=== PATIENT | male | born 1940 | race Caucasian/White ===

== ENCOUNTER 2016-09-04 07:00 | Day surgery (SDC) | payer MEDICARE, OTHER ==
[~2016-09-04] VITALS: Ht 182.9 cm; Wt 99.8 kg
[~2016-09-04 07:00] MED LIST: ASPIR-LOW81 MG PO; ATORVASTATIN CA80 MG PO; COREG3.125 MG PO; GLUCOPHAGE500 MG PO; IMURAN50 MG PO; LOTENSIN40 MG PO; NITROSTAT0.4 MG SL; TURMERIC500 M1 PO
--- NOTE | 2016-09-04 08:20 | NUR ---
PT SEEMS VERY RELAXED, ALERT AND ORIENTED. PT WAS INTRIGUED ABOUT GETTING COLOR COPIES OF THE PICS DR WAS TAKING DURING SCOPE. PASSED INFO ONTO HIS RN KEVIN. HIS DAUGHTER BEATRICE IS HERE TO TAKE HIM HOME. PT REQUESTED PRAYER, WILL FOLLOW NEEDED
--- NOTE | 2016-09-04 10:00 | NUR ---
09/04/16 Vesna Malik REPORT FROM DIRECTOR OF EDUCATION AND TRAINING.
--- NOTE | 2016-09-06 11:21 | OR ---
[facility] [address] [place], [place] [address] Signed DATE OF SERVICE: 09/04/2016 PREOPERATIVE DIAGNOSES: 1. Gastroesophageal reflux disease. 2. Personal history of colonic polyps. 3. Diverticulosis. POSTOPERATIVE DIAGNOSES: 1. Small type 1 hiatal hernia. 2. Mild gastritis. 3. Distal esophageal ulcer. 4. Moderate left-sided diverticulosis. 5. 5 mm polyps at 115, 110, 130 cm. 6. Moderate internal hemorrhoids. PROCEDURES: 1. EGD of with SYDNI testand biopsies of the antrum and distal esophageal ulcer. 2. Colonoscopy with hot biopsy. ESTIMATED BLOOD LOSS: None. INDICATIONS: Julius is a 76-year-old gentleman who was asked to see me for both upper and lower endoscopy. He had been watching TV ads about Prilosec, so he switched over to Zantac. As expected his acid reflux has worsened. In addition, he returns for a followup colonoscopy due to his personal history of colonic polyps. He is also known to have left-sided diverticulosis. In addition, he has a paradoxical reaction to Versed. Consequently, we have used our anesthesia provided in the past with propofol with good results. In the office, I gave Julius books on both upper and lower endoscopy. We reviewed the nature of the 2 tests along with the risks including, but not limited to gas bloating, crampy abdominal pain, bleeding, perforation, requiring surgery, and missed diagnosis. We also discussed the need for IV conscious sedation as stated above. He had expressed understanding and wished to proceed. PROCEDURE: Julius was taken into our endoscopy suite and placed in the supine semi-recumbent position. The posterior oropharynx was anesthetized with Hurricaine spray. A bite block was utilized for the case. The adult gastroscope was introduced, advanced all the way out into the 3rd portion of the duodenum under direct visualization with the camera without difficulty. The duodenal and pyloric channel were unremarkable. He had some very mild patchy erythematous changes in his distal stomach. We took biopsies of the antrum for pathologic review as well as SYDNI test. Upon Electronically Signed By: JUDSON LANGLEY MD 09/06/16 1121 PATIENT NAME: JULIUS HARRIS III OPERATIVE REPORT DATE OF : 42 PHYSICIAN: JUDSON LANGLEY MD REPORT #: [id number] REPORT IS CONFIDENTIAL AND NOT TO BE RELEASED WITHOUT AUTHORIZATION [facility] [address] [place] [place], [place] [address] Signed retroflexion of the scope, he does have a small type 1 hiatal hernia. The scope was withdrawn up to the area of GE junction, which was compliant without strictures. We saw no gastric or esophageal varices. He does have some disruption to the Z-line and just above the Z-line, he had a small ulcerated lesion slightly larger than the biopsy forceps. We went ahead and took a biopsy of this area as well. The rest of the esophagus was unremarkable. After this, the gas was suctioned out and the gastroscope removed. Julius tolerated his upper endoscopy quite well. Julius was then rotated into the left lateral decubitus position. He was maintained on IV sedation with versed and fentanyl. A digital rectal exam was performed. He does have an indurated prostate gland. It appears to be symmetric on both sides. The adult colonoscope was then introduced and advanced all the way around into the cecum under direct visualization with camera without difficulty. The scope was then slowly withdrawn. The above-mentioned polyps were removed with the help of hot biopsy forceps. Once in the rectum, the scope had been retroflexed. He does have some moderate internal hemorrhoid columns. After this, the gas was suctioned out and colonoscope removed. Julius tolerated his Lower endoscopy quite well. RECOMMENDATIONS: I will see Julius back in my office in 7-14 days to review his results. He might consider going back on a proton pump inhibitor. MD SOLANGE Tariq/Modl /[id number] cc: DO Judson Munguia MD Electronically Signed By: JUDSON LANGLEY MD 09/06/16 1121 PATIENT NAME: JULIUS HARRIS III OPERATIVE REPORT DATE OF : 42 PHYSICIAN: JUDSON LANGLEY MD REPORT #: [id number] REPORT IS CONFIDENTIAL AND NOT TO BE RELEASED WITHOUT AUTHORIZATION
== END 2016-09-04 10:40 | disposition home or self-care (01) ==
LOC: DS 07:00 → OPS 07:00 → DS 08:15 → OPS 08:45
PROVIDERS: Colon & Rectal Surgery
PROC: 0DB38ZX Excision of Lower Esophagus, Via Natural or Artificial Opening Endoscopic, Diagnostic (ICD-10-PCS; 2016-09-04)
PROC: 0DB68ZX Excision of Stomach, Via Natural or Artificial Opening Endoscopic, Diagnostic (ICD-10-PCS; 2016-09-04)
PROC: 0DBE8ZX Excision of Large Intestine, Via Natural or Artificial Opening Endoscopic, Diagnostic (ICD-10-PCS; principal; 2016-09-04 08:15)
PROC: 0DB78ZX Excision of Stomach, Pylorus, Via Natural or Artificial Opening Endoscopic, Diagnostic (ICD-10-PCS; 2016-09-04 08:15)
DX: K63.5 Polyp of colon (principal); D12.6 Benign neoplasm of colon, unspecified; K20.9 Esophagitis, unspecified; K29.50 Unspecified chronic gastritis without bleeding; K57.30 Diverticulosis of large intestine without perforation or abscess without bleeding; K44.9 Diaphragmatic hernia without obstruction or gangrene; K64.8 Other hemorrhoids; K31.89 Other diseases of stomach and duodenum; I25.10 Atherosclerotic heart disease of native coronary artery without angina pectoris; I10 Essential (primary) hypertension; G47.33 Obstructive sleep apnea (adult) (pediatric); N40.0 Benign prostatic hyperplasia without lower urinary tract symptoms; E78.5 Hyperlipidemia, unspecified; E66.9 Obesity, unspecified; E11.9 Type 2 diabetes mellitus without complications; Z86.010 Personal history of colon polyps; Z90.89 Acquired absence of other organs; Z68.29 Body mass index [BMI] 29.0-29.9, adult; Z88.5 Allergy status to narcotic agent; Z96.653 Presence of artificial knee joint, bilateral; Z98.890 Other specified postprocedural states; Z95.5 Presence of coronary angioplasty implant and graft
CPT/HCPCS: 00740; 86677; 88305; J2250; J2370; J2704; J3010; J7120

== ENCOUNTER 2017-05-06 12:11 | Emergency (ER) | payer MEDICARE, OTHER ==
[~2017-05-06] VITALS: Ht 182.9 cm; Wt 99.8 kg
--- NOTE | 2017-05-06 17:19 | EKG ---
[facility] [address] [facility] [place] [address] Signed Sinus bradycardia Septal infarct (cited on or before 29-AUG-2016) Abnormal ECG When compared with ECG of 29-AUG-2016 14:39, No significant change was found Confirmed by JARET BERKOWITZ MD ([id number]) on 05/06/2017 5:19:08 PM Electronically Signed By: JARET BERKOWITZ MD 05/06/17 1719 PATIENT NAME: JULIUS HARRIS [facility] Electrocardiogram DATE OF : 42 PHYSICIAN: JARET BERKOWITZ MD REPORT #: [id number] REPORT IS CONFIDENTIAL AND NOT TO BE RELEASED WITHOUT AUTHORIZATION
== END 2017-05-06 17:05 | disposition home or self-care (01) ==
LOC: ED 12:11
DX: R07.89 Other chest pain (principal); Z95.5 Presence of coronary angioplasty implant and graft; Z88.4 Allergy status to anesthetic agent; Z79.82 Long term (current) use of aspirin; Z79.899 Other long term (current) drug therapy
CPT/HCPCS: 71045; 80053; 84484; 85025; 85610; 93005; 93010; 99284

== ENCOUNTER 2019-05-19 17:53 | Emergency (ER) | payer MEDICARE, OTHER ==
[~2019-05-19] VITALS: Ht 182.9 cm; Wt 96.2 kg
[~2019-05-19 17:53] MED LIST changes: +ISOSORBIDE MONO30 MG PO; +MULTI-VITAMIN-1 EACH PO; +VITAMIN D-32000 UNIT PO; +ZANTAC150 MG PO; +ZINC CHELATED50 MG PO
--- NOTE | 2019-05-19 18:45 | EKG ---
[facility] [address] [facility] [place] [address] Signed Sinus bradycardia Septal infarct (cited on or before 29-AUG-2016) Abnormal ECG When compared with ECG of 06-MAY-2017 12:17, No significant change was found Confirmed by JAMEL LOO MD ([id number]) on 05/19/2019 6:45:08 PM Electronically Signed By: JAMEL LOO MD 05/19/19 1845 PATIENT NAME: JULIUS HARRIS [facility] Electrocardiogram DATE OF : 42 PHYSICIAN: JAMEL LOO MD REPORT #: [id number] REPORT IS CONFIDENTIAL AND NOT TO BE RELEASED WITHOUT AUTHORIZATION
== END 2019-05-19 21:39 | disposition home or self-care (01) ==
LOC: ED 17:53
DX: R07.9 Chest pain, unspecified (principal); I10 Essential (primary) hypertension; E11.9 Type 2 diabetes mellitus without complications; E78.5 Hyperlipidemia, unspecified; Z95.5 Presence of coronary angioplasty implant and graft; Z88.8 Allergy status to other drugs, medicaments and biological substances; Z79.899 Other long term (current) drug therapy; Z79.82 Long term (current) use of aspirin; Z79.84 Long term (current) use of oral hypoglycemic drugs
CPT/HCPCS: 71045; 80053; 83735; 84484; 85025; 93005; 93010; 99285-25

== ENCOUNTER 2020-08-21 14:24 | Emergency (ER) | payer MEDICARE, OTHER ==
[~2020-08-21] VITALS: Ht 182.9 cm; Wt 86.2 kg
[2020-08-21] MEDS ORDERED: DONEPEZIL HCL5 MG PO (14:36)
--- NOTE | 2020-08-22 11:17 | EKG ---
[facility] [address] [facility] [place] [address] Signed Sinus rhythm with premature atrial complexes with aberrant conduction Septal infarct (cited on or before 29-AUG-2016) Abnormal ECG When compared with ECG of 19-MAY-2019 18:06, aberrant conduction is now present Nonspecific T wave abnormality now evident in Inferior leads Nonspecific T wave abnormality now evident in Lateral leads Confirmed by FLO QUIROGA DO ([id number]) on 08/22/2020 11:16:51 AM Electronically Signed By: FLO QUIROGA DO 08/22/20 1117 PATIENT NAME: JULIUS HARRIS [facility] Electrocardiogram DATE OF : 42 PHYSICIAN: FLO QUIROGA DO REPORT #: [id number] REPORT IS CONFIDENTIAL AND NOT TO BE RELEASED WITHOUT AUTHORIZATION
== END 2020-08-21 16:21 | disposition home or self-care (01) ==
LOC: ED 14:24
DX: R07.89 Other chest pain (principal); E11.9 Type 2 diabetes mellitus without complications; I10 Essential (primary) hypertension; E78.5 Hyperlipidemia, unspecified; Z88.8 Allergy status to other drugs, medicaments and biological substances; Z79.899 Other long term (current) drug therapy; Z79.82 Long term (current) use of aspirin; Z79.84 Long term (current) use of oral hypoglycemic drugs
CPT/HCPCS: 71045; 80053; 83735; 84484; 85025; 93005; 93010; 99285-25

== ENCOUNTER 2021-05-16 10:25 | Day surgery (SDC) | payer MEDICARE, OTHER ==
[~2021-05-16] VITALS: Ht 182.9 cm; Wt 87.7 kg
[~2021-05-16 10:25] MED LIST changes: +ASPIRIN81 MG PO; +DONEPEZIL HCL5 MG PO; +OSTERA TABLET1 EACH PO
--- NOTE | 2021-05-16 11:11 | NUR ---
RECENTLY FELL 2 WEEKS AGO. PATRIA ROOT DID NOT SEE DENIES ISSUES WITH FALL. STATES STUBBED TOE.
--- NOTE | 2021-05-16 11:16 | NUR ---
BLOOD GLUCOSE BY FINGER STICK 116.
--- NOTE | 2021-05-16 11:27 | NUR ---
EKG was done at 1028
--- NOTE | 2021-05-16 12:31 | NUR ---
05/16/21 Monica1 Lauren Patel 1224-PATIENT ARRIVED TO PACU NONAROUSABLE ON 4L NC RR EVEN PLACED ON 2L. PATIENT LAYING PRONE, SR. IVF INFUSING. BANDAID TO RIGHT SIDE OF LOW BACK CDI.
--- NOTE | 2021-05-16 17:19 | EKG ---
[facility] [address] [facility] [place] [address] Signed Sinus bradycardia Septal infarct (cited on or before 29-AUG-2016) Abnormal ECG When compared with ECG of 21-AUG-2020 14:32, aberrant conduction is no longer present Nonspecific T wave abnormality no longer evident in Inferior leads Nonspecific T wave abnormality no longer evident in Lateral leads Confirmed by JARET BERKOWITZ MD ([id number]) on 05/16/2021 5:18:57 PM Electronically Signed By: JARET BERKOWITZ MD 05/16/21 1719 PATIENT NAME: JULIUS HARRIS [facility] Electrocardiogram DATE OF : 42 PHYSICIAN: JARET BERKOWITZ MD REPORT #: [id number] REPORT IS CONFIDENTIAL AND NOT TO BE RELEASED WITHOUT AUTHORIZATION
--- NOTE | 2021-05-22 11:40 | PATH ---
[facility] [address] [place], [place] [address] Signed SPECIMEN(S): A BONE MARROW - CORE SPECIMEN(S): B BONE MARROW - ASPIRATION SPECIMEN(S): C FLOW CYTOMETRY, EDTA ASP CLINICAL HISTORY: Bone marrow biopsy. 80-year-old male with mild pancytopenia. See attached. C94.6 (myelodysplastic disease, not classified) DIAGNOSIS SUMMARY: A. Peripheral blood - Mild normocytic anemia. - No circulating blasts identified. B. Bone marrow biopsy and aspiration: - Normocellular marrow, 20%, with 1% blasts. - Trilineage hematopoiesis with no significant dyspoiesis. - Normal marrow iron stores by Prussian Blue stain. - No malignancy identified. - See Diagnostic Comment. DIAGNOSTIC COMMENT: The anemia noted in the CBC is mild and normocytic. An anemia of chronic disease is favored. Marrow iron stores appear normal by Prussian Blue staining. No significant dyspoiesis is noted. Clinical correlation with the pending FISH panel for MDS and chromosome analysis is needed. JLP:C2NR HISTORICAL SUMMARY: 80-year-old male with no prior hematologic history in [facility]. The patient has mild anemia and a clinical concern for possible myelodysplasia is noted. This bone marrow exam is to evaluate these findings. PERIPHERAL BLOOD: HEMOGRAM (05/16/2021): WBC 7.0 K/ul, RBC 4.13 M/ul, HGB 13.0 g/dl, HCT 38.7%, MCV 93.7 fl, MCH 31.3 pg, MCHC 33.5 g/dl, RDW 13.7%, PLT 262 K/ul, MPV 8.3 fl. AUTOMATED DIFFERENTIAL COUNT: Neutrophils 60.2%, lymphocytes 27.7%, monocytes 9.2%, eosinophils 2.2%, basophils 0.7%. The red blood cells are normocytic and normochromic with minimal anisopoikilocytosis. The neutrophils are unremarkable. Lymphocytes are composed of small mature appearing forms. Platelets appear PATIENT NAME: JULIUS HARRIS III PATHOLOGY DATE OF : 42 REPORT #: [id number] PHYSICIAN: [place] PATHOLOGY PCP: NO PRIMARY CARE PHYSICIAN REPORT IS CONFIDENTIAL AND NOT TO BE RELEASED WITHOUT AUTHORIZATION [facility] [address] [place], [place] [address] Signed normal in number and morphology with no platelet clumping or RBC microangiopathic effect identified. No blasts are identified. BONE MARROW: ASPIRATE SMEARS/TOUCH IMPRINT: The aspirate smears are adequate for evaluation. Erythroid precursors are mildly increased and show adequate maturation with essentially normal morphology. The myeloid precursors show full maturation with unremarkable morphology. There is no increase in blasts. Megakaryocytes are identified with a normal morphology. BONE MARROW DIFFERENTIAL COUNT (300 cells): Blasts 1%, promyelocytes 1%, myelocytes 8%, metamyelocytes/bands/segs 29%, erythroid precursors 40%, lymphocytes 11%, monocytes 6%, eosinophils 3%, plasma cells 1%. M:E ratio: 1.1:1 BONE MARROW CORE BIOPSY/ASPIRATE CLOT/CELL BLOCK: The aspirate clot section and the core biopsy are adequate for evaluation. The core biopsy demonstrates unremarkable trabecular bone. The cellularity is normal for age, estimated at 20%. The erythroid precursors are mildly increased with essentially unremarkable maturation. The myeloid precursors are unremarkable with no significant dyspoiesis. Blasts are not increased. Megakaryocytes appear normal in number and in morphology. No granulomas, atypical lymphoid aggregates or foreign malignant cells are detected. SPECIAL STAINS (with adequate controls): - iron (aspirate smear): Decreased marrow iron stores by Prussian Blue stain. No ring sideroblasts are noted. - iron (cell block): Marrow iron stores appear normal by Prussian Blue stain. No ring sideroblasts are noted. FLOW CYTOMETRY: Bone marrow, flow cytometry: - No diagnostic abnormal populations are identified by flow cytometry. - See Comment. COMMENT: The majority of the gated lymphocytes are T-cells with an essentially normal marking pattern except for a mild inversion of the CD4:CD8 ratio of 0.6:1. There is no loss of thomson-T markers. This is typically a reactive process. The B-cells are unremarkable with no light chain restriction or aberrant marking. Blasts are not increased. No significant aberrant marking is detected in the myeloid or monocyte gate areas. Plasma cells are not increased. Correlation with histologic findings is suggested to exclude disorders that can have normal flow PATIENT NAME: JULIUS HARRIS [facility] PATHOLOGY DATE OF : 42 REPORT #: [id number] PHYSICIAN: CAROLINA PATHOLOGY PCP: NO PRIMARY CARE PHYSICIAN REPORT IS CONFIDENTIAL AND NOT TO BE RELEASED WITHOUT AUTHORIZATION [facility] [address] [place] [id number] Signed cytometry findings such as Classical Hodgkin lymphoma, some non-Hodgkin lymphomas, and non-hematopoietic tumors. FLOW CYTOMETRY ANALYSIS: FLOW DIFFERENTIAL (% Total CD45 vs. SSC gating): Myeloid 78%; Lymphoid 9%; Monocyte 4%; Dim CD45/Blast: 1.1%. Cell Count: 3.2 x 10*3/uL. POPULATION ANALYSIS: BLASTS: Analysis of the dim CD45 gate demonstrates 1.1% myeloblasts by CD34/CD117. 0.2% hematogones are detected. LYMPHOID CELLS: The lymphocyte gate comprises 9% of total events and includes 88% T-cells with a CD4:CD8 ratio of 0.6:1 and normal thomson T-cell antigen expression. 4% of lymphocytes are polyclonal B-cells with a kappa:lambda ratio of 1.5:1. The remainders are NK-cells. MYELOID CELLS: The myeloid population comprises 78% of the total events. No aberrant immunophenotypic expression is detected. MONOCYTES: The monocyte population comprises 4% of the total events. Monocytes are not increased. Some increased expression of CD56 is observed. PLASMA CELLS: 0.9% plasma cells are detected in the screening gate neg-dimCD45/CD38. Plasma cells are CD45 dim and positive for CD19. ANTIBODIES USED: KAPPA, LAMBDA, CD20, CD10, CD19, CD23, CD38, CD16, CD56, CD8, CD5, CD2, CD4, CD7, CD3, CD14, CD33, CD13, HLADR, CD34, CD117, CD15, CD45. TOTAL ANTIBODIES USED: 23. JNB FINAL DIAGNOSIS PERFORMED BY: Darren Gonzalez MD, May 17 2021 1:48PM CYTOGENETICS: Chromosome analysis is pending, and the results will be reported in an addendum. FISH ANALYSIS: A FISH panel for MDS is pending, and the results will be reported in an addendum. GROSS DESCRIPTION: Two specimens are received in two containers, labeled "GH." A. The specimen, labeled "GH, bone marrow core," is received in formalin and consists of one cylindrical bone core fragment measuring 0.2 cm in diameter and 2.3 cm in length. The specimen is entirely submitted in cassette (A1) following decalcification in Immunocal. PATIENT NAME: JULIUS HARRIS III PATHOLOGY DATE OF : 42 REPORT #: [id number] PHYSICIAN: CAROLINA PATHOLOGY PCP: NO PRIMARY CARE PHYSICIAN REPORT IS CONFIDENTIAL AND NOT TO BE RELEASED WITHOUT AUTHORIZATION [facility] [address] [place], [place] [address] Signed Cold ischemic time: Cannot be determined because of lack of information. Approximate time in formalin: 4 hours and 30 minutes. B. The specimen, labeled "GH, bone marrow clot," is received in formalin and consists of thickened clot material measuring 2.4 x 1.4 x 0.4 cm in aggregate. The specimen is filtered and entirely submitted in cassette (B1). Bone marrow inventory also includes: Two peripheral smears, one EDTA tube bone marrow, two heparin tubes (one bone marrow, one peripheral blood). AT (under the direct supervision of a pathologist) The Gross Description was prepared using a voice recognition system. The report was reviewed for accuracy; however, sound-alike word errors, addition and/or deletions may occur. If there is any question about this report, please contact Client Services. ADDITIONAL NOTES: This test was developed and its performance characteristics determined by [facility]. It has not been cleared or approved by the US Food and Drug Administration. The FDA does not require this test to go through premarket FDA review. This test is used for clinical purposes. It should not be regarded as investigational or for research. This laboratory is certified under the Clinical Laboratory Improvement Amendments (CLIA) as qualified to perform high complexity clinical laboratory testing. PERFORMING LABORATORY: The technical component was performed by [facility], [address] [place] [address] (Technical Assoc: Jakub Beltran D.O.; CLIA#: [id number]). Professional interpretation was performed at [facility], [address] [place] [address]. A portion of the technical component was performed by [facility], [address] [place] [address] (Technical Assoc: Stephanie Khan MD; CLIA# [id number]). A portion of the technical component was performed by [facility], [address] [place] [address] (Technical Assoc: Jakub Beltran D.O.; CLIA#: [id number]). Professional interpretation was performed at [facility], [address] [place] [address]. IMAGES: PATIENT NAME: JULIUS HARRIS [facility] PATHOLOGY DATE OF : 42 REPORT #: [id number] PHYSICIAN: CAROLINA PATHOLOGY PCP: NO PRIMARY CARE PHYSICIAN REPORT IS CONFIDENTIAL AND NOT TO BE RELEASED WITHOUT AUTHORIZATION [facility] [address] [place] [address] Signed A: [id number] A: [id number] Diagnostician: Darren Gonzalez MD Pathologist Electronically Signed 05/22/2021 Copies: ~ PATIENT NAME: JULIUS HARRIS [facility] PATHOLOGY DATE OF : 42 REPORT #: [id number] PHYSICIAN: CAROLINA MCDANIEL PCP: NO PRIMARY CARE PHYSICIAN REPORT IS CONFIDENTIAL AND NOT TO BE RELEASED WITHOUT AUTHORIZATION
== END 2021-05-16 13:20 | disposition home or self-care (01) ==
LOC: OPS 10:25 → DS 10:25 → OPS 12:00 → DS 12:00 → OPS 13:20
PROVIDERS: ATTEND Specialist
PROC: 079T3ZX Drainage of Bone Marrow, Percutaneous Approach, Diagnostic (ICD-10-PCS; 2021-05-16)
PROC: 07DR3ZX Extraction of Iliac Bone Marrow, Percutaneous Approach, Diagnostic (ICD-10-PCS; principal; 2021-05-16 12:00)
DX: D64.9 Anemia, unspecified (principal); E11.9 Type 2 diabetes mellitus without complications; I10 Essential (primary) hypertension; I25.10 Atherosclerotic heart disease of native coronary artery without angina pectoris; G47.33 Obstructive sleep apnea (adult) (pediatric); K21.9 Gastro-esophageal reflux disease without esophagitis; E78.5 Hyperlipidemia, unspecified; G31.84 Mild cognitive impairment of uncertain or unknown etiology; Z60.2 Problems related to living alone; Z79.84 Long term (current) use of oral hypoglycemic drugs; Z88.8 Allergy status to other drugs, medicaments and biological substances; Z98.61 Coronary angioplasty status
CPT/HCPCS: 85025; 88184; 88185; 88305; 88311; 88313; 88377; 93005; 93010; J2704; J7121

== ENCOUNTER 2022-11-12 18:15 | Emergency (ER) | payer OTHER, MEDICARE ==
[~2022-11-12] VITALS: Ht 172.7 cm; Wt 95.7 kg
--- OUTSIDE RECORDS SUMMARY | ~2022-11-12 | XMS | Continuity of Care Document ---
Demographics + + + | Address | [address] | | | [place] [address] | + + + | Preferred Language | Unknown | + + + | Marital Status | | + + + | Congregation Affiliation | Unknown | + + + | Race | White | + + + | Ethnic Group | Unknown | + + + Author + + + | Author | [place] | + + + | Organization | [place] | + + + | Address | [address] | | | [place] [address] | + + + | Phone | | + + + Care Team Providers + + + + | Care Senior Health Educator Name | Role | Phone | + + + + Unavailable | Unavailable | + + + + Allergies and Intolerances + + + + + + | date | description | facility | reaction | severity | + + + + + + | (no date) | midazolam | [facility] | (no reaction) | (no severity) | + + + + + + Encounters No information. Functional Status No information. Immunizations No information. Medications No information. Problems + + + + | date | description | facility | + + + + | 2021-11-15 11:13 | Malignant neoplasm of | [facility] | | | prostate | | + + + + | 2021-11-15 11:13 | APLASTIC ANEMIA, | [facility] | | | UNSPECIFIED | | + + + + | 2021-11-15 11:13 | MILD COGNITIVE IMPAIRMENT, | [facility] | | | SO STATED | | + + + + | 2022-05-02 11:25 | Malignant neoplasm of | [facility] | | | prostate | | + + + + | 2022-07-25 13:00 | Malignant neoplasm of | [facility] | | | prostate | | + + + + | 2022-07-25 13:00 | APLASTIC ANEMIA, | [facility] | | | UNSPECIFIED | | + + + + | 2022-07-25 13:00 | MILD COGNITIVE IMPAIRMENT | [facility] | | | OF UNCERTAIN OR UNKNOWN | | + + + + | 2022-07-25 13:00 | ENCOUNTER FOR | [facility] | | | ANTINEOPLASTIC CHEMOTHERAPY | | | | | | + + + + | 2022-09-06 10:53 | OTHER SPECIFIED DISORDERS | [facility] | | | OF NOSE AND NA | | + + + + | 2022-09-06 10:53 | OTHER SPECIFIED DISORDERS | [facility] | | | OF NOSE AND NASAL SINUSES | | + + + + | 2022-10-17 13:40 | Malignant neoplasm of | [facility] | | | prostate | | + + + + Procedures No information. Results/Labs No information. Social History No information. Vital Signs No information."
--- OUTSIDE RECORDS SUMMARY | ~2022-11-12 | XMS | Continuity of Care Document ---
Demographics + + + | Address | [address] | | | [place] [address] | + + + | Preferred Language | Unknown | + + + | Marital Status | | + + + | Congregation Affiliation | Unknown | + + + | Race | White | + + + | Ethnic Group | Unknown | + + + Author + + + | Author | [facility] | + + + | Organization | [facility] | + + + | Address | [address] | | | [place] [address] | + + + | Phone | | + + + Care Team Providers + + + + | Care Heel Seat Flap Stapler Name | Role | Phone | + [...]
[2022-11-12] MEDS ORDERED: MEMANTINE HCL10 MG PO (19:21)
[2022-11-12 20:35] VITALS: BP 169/89
== END 2022-11-12 20:35 | disposition home or self-care (01) ==
LOC: ED 18:15
DX: S20.212A Contusion of left front wall of thorax, initial encounter (principal); W01.0XXA Fall on same level from slipping, tripping and stumbling without subsequent striking against object, initial encounter; E11.9 Type 2 diabetes mellitus without complications; I10 Essential (primary) hypertension; E78.5 Hyperlipidemia, unspecified; Z95.5 Presence of coronary angioplasty implant and graft; Z88.8 Allergy status to other drugs, medicaments and biological substances; Z79.899 Other long term (current) drug therapy; Z79.84 Long term (current) use of oral hypoglycemic drugs
CPT/HCPCS: 71101; 99283-25; A9270

== ENCOUNTER 2023-07-04 15:45 | Emergency (ER) | payer MEDICARE, OTHER ==
[~2023-07-04] VITALS: Ht 182.9 cm; Wt 95.9 kg
[~2023-07-04 15:45] MED LIST changes: +MEMANTINE HCL10 MG PO
[2023-07-04 16:09] LABS: HEMOGLOBIN 12.9 g/dL (12.0-18.0); LYMPHOCYTES 27.3 % (24-44); MCH 31.8 (27-36); MCHC 34.8 g/dl (30-36); MCV 91.4 fl (81-99); MONOCYTES 10.8 % (0-12); NEUTROPHILS 57.9 % (39-80); PLATELET COUNT 297 K/uL (140-440); RBC 4.05 M/ul (4.3-5.7); RDW 13.8 (10.5-15.0)
[2023-07-04 16:22] LABS: ALBUMIN 3.2 g/dL (3.4-5.0); ALBUMIN/GLOBULIN RATIO 0.91 (1.1-2.4); ANION GAP 14.9 (7-21); BILIRUBIN, TOTAL 0.6 ng/dL (0.2-1.0); BUN/CREATININE RATIO 7.52 (6.0-28.6); CALCIUM 8.2 mg/dL (8.5-10.1); CREATININE, SERUM 0.93 mg/dL (0.70-1.30); MAGNESIUM 1.8 mg/dL (1.8-2.4); POTASSIUM 3.9 mmol/L (3.5-5.1); PROTEIN, TOTAL 6.7 g/dL (6.4-8.2)
[2023-07-04 19:02] VITALS: BP 148/93
--- NOTE | 2023-07-07 22:28 | EKG ---
[facility] [address] [place] [address] Signed Sinus bradycardia Anteroseptal infarct (cited on or before 29-AUG-2016) ST \T\ T wave abnormality, consider inferolateral ischemia Abnormal ECG When compared with ECG of 16-MAY-2021 09:28, Questionable change in initial forces of Anterior leads T wave inversion now evident in Inferior leads T wave inversion now evident in Anterolateral leads Confirmed by Afua Patel MD () on 07/07/2023 10:29:15 PM Electronically Signed By: AFUA PATEL MD 07/07/23 2228 PATIENT NAME: JULIUS HARRIS III Electrocardiogram DATE OF : 42 PHYSICIAN: AFUA PATEL MD REPORT #: [id number] REPORT IS CONFIDENTIAL AND NOT TO BE RELEASED WITHOUT AUTHORIZATION
== END 2023-07-04 19:12 | disposition home or self-care (01) ==
LOC: ED 15:45
PROVIDERS: Emergency Medicine
DX: R07.9 Chest pain, unspecified (principal); G30.9 Alzheimer's disease, unspecified; F02.80 Dementia in other diseases classified elsewhere, unspecified severity, without behavioral disturbance, psychotic disturbance, mood disturbance, and anxiety; E11.9 Type 2 diabetes mellitus without complications; I10 Essential (primary) hypertension; E78.5 Hyperlipidemia, unspecified; Z88.8 Allergy status to other drugs, medicaments and biological substances; Z79.899 Other long term (current) drug therapy; Z79.84 Long term (current) use of oral hypoglycemic drugs
CPT/HCPCS: 36415; 71045; 80053; 83735; 84484; 85025; 93005; 93010; 99285-25

== ENCOUNTER 2023-07-18 16:06 | Observation (INO) | payer MEDICARE, OTHER ==
[~2023-07-18] VITALS: Ht 180.3 cm; Wt 81.6 kg
--- OUTSIDE RECORDS SUMMARY | 2023-07-18 16:14 | XMS ---
PreManage Notification: JULIUS HARRIS Security Count Team Clerk Events No recent Security Events currently on file CRITERIA MET - [facility] [place] [facility] - 2 Visits in 30 Days CARE PROVIDERS There are no care providers on record at this time. [facility] has no Care Guidelines for this patient. Yam[place] VISIT COUNT (12 MO.) 3 [facility]Ali Chukson H. TOTAL 3 NOTE: Visits indicate total known visits. ED/C VISIT TRACKING (12 MO.) 07/18/2023 16:07 [facility] [place] TYPE: Emergency COMPLAINT: - UNABLE TO SWALLOW 07/04/2023 15:46 [facility] [place] TYPE: Emergency COMPLAINT: - CHEST PAIN DIAGNOSES: - Allergy status to other drugs, medicaments and biological substances - Alzheimer's disease, unspecified - Chest pain, unspecified - Dementia in other diseases classified elsewhere, unspecified severity, without behavioral disturbance, psychotic disturbance, mood disturbance, and anxiety - Essential (primary) hypertension - Hyperlipidemia, unspecified - long term care social worker (current) use of oral hypoglycemic drugs - Other fdc (current) drug therapy - Type 2 diabetes mellitus without complications 11/12/2022 18:16 [facility] [place] TYPE: Emergency COMPLAINT: - FALL DIAGNOSES: - Allergy status to other drugs, medicaments and biological substances - Chest pain, unspecified - Contusion of left front wall of thorax, initial encounter - Essential (primary) hypertension - Fall on same level from slipping, tripping and stumbling without subsequent striking against object, initial encounter - Hyperlipidemia, unspecified - [facility] (current) use of oral hypoglycemic drugs - Other local company intermodal truck driver (current) drug therapy - Presence of coronary angioplasty implant and graft - Type 2 diabetes mellitus without complications INPATIENT VISIT TRACKING (12 MO.) No inpatient visits to display in this time frame [email or web address]
[2023-07-18] MEDS ORDERED: SODIUM CHLORIDE 0.9% 1,000 ML IV ONE (17:45)
[2023-07-18 17:51] LABS: BASOPHILS 0.9 % (0-2); EOSINOPHILS 1.3 % (0-6); HEMATOCRIT 36.7 % (35.0-50.0); HEMOGLOBIN 12.7 g/dL (12.0-18.0); LYMPHOCYTES 25.1 % (24-44); MCH 31.4 (27-36); MCHC 34.5 g/dl (30-36); MONOCYTES 11.3 % (0-12); NEUTROPHILS 61.4 % (39-80); PLATELET COUNT 300 K/uL (140-440); RBC 4.03 M/ul (4.3-5.7); RDW 13.8 (10.5-15.0)
[2023-07-18 18:05] LABS: ALBUMIN 3.6 g/dL (3.4-5.0); ALBUMIN/GLOBULIN RATIO 1.03 (1.1-2.4); BILIRUBIN, TOTAL 0.8 ng/dL (0.2-1.0); BUN/CREATININE RATIO 23.07 (6.0-28.6); CALCIUM 9.2 mg/dL (8.5-10.1); CREATININE, SERUM 0.91 mg/dL (0.70-1.30); PROTEIN, TOTAL 7.1 g/dL (6.4-8.2)
[2023-07-18] MEDS ORDERED: MORPHINE SULFATE 4 MG/ML VIAL IV ONE (18:45)
[2023-07-18] MEDS ORDERED: ASPIRIN 81 MG CHEW PO ONE (18:45)
[2023-07-18] MEDS ORDERED: FAMOTIDINE 20 MG/ 2 ML VIAL IV SCH (21:19)
[2023-07-18] MEDS ORDERED: MORPHINE SULFATE 4 MG/ML VIAL IV PRN (21:30)
[2023-07-18] MEDS ORDERED: ondansetron HCL 4 MG/2 ML VIAL IV PRN (21:30)
[2023-07-18] MEDS ORDERED: DEXTROSE 5% - LACTATED RINGERS 1,000 ML IV SCH (21:30)
[2023-07-18] MEDS ORDERED: IBLOOD GLUCOSE TEST STRIP 1 EA TEST XX PRN (21:45)
[2023-07-18] MEDS ORDERED: hydrALAZINE HCL 20 MG/ML VIAL IV PRN (21:45)
[2023-07-18] MEDS ORDERED: DEXTROSE 50% 50 ML SYR IV PRN ×2 (21:45)
[2023-07-18] MEDS ORDERED: DEXTROSE 5% 1,000 ML IV PRN (21:45)
[2023-07-18] MEDS ORDERED: GLUCAGON,HUMAN RECOMBINANT 1 MG/ML VIAL SUB-Q PRN (21:45)
[2023-07-18 22:52] VITALS: BP 152/84
--- NOTE | 2023-07-18 22:52 | NUR ---
PATIENT ARRIVED TO THE UNIT VIA STRETCHED. ABLE TO TRANSFER SELF FROM STRETCHER TO MED/SURG BED WITH 1 PA ASSIST. PATIENT IS ALERT AND ORIENTED TO SELF. CONFUSED AND OFTEN NEEDS TO BE REORIENTED. DOES REDIRECT AND REORIENT WELL. LUNGS CTA, DENIES ANY PAIN OR DISCOMFORT AT THIS TIME. IV IN RFA IS PATENT. IVF INFUSING WITH NO ISSUES OR CONCERNS. PATIENT ORIENTED TO CALL LIGHT. BED ALARM ON.
[2023-07-19] VITALS (12 sets, daily range): BP systolic 137–170; BP diastolic 74–97
--- NOTE | 2023-07-19 00:51 | NUR ---
BED ALARM SOUNDING. PATIENT WANTING TO GET OUT OF BED TO USE BATHROOM. PATIENT AMBULATED TO BATHROOM WITH 1 PA ASSIST. PATIENT REMOVED TELE LEADS. NEW LEADS APPLIED. PATIENT VERY CONFUSED AND DISORIENTED. REORIENTED. BACK IN BED WITH BED ALARM ON AND CALL LIGHT WITHIN REACH.
[2023-07-19] MEDS ORDERED: IBLOOD GLUCOSE TEST STRIP 1 EA TEST XX SCH (02:00)
[2023-07-19] MEDS ORDERED: INSULIN LISPRO 100 UNIT/ML ML SUB-Q SCH (02:00)
--- NOTE | 2023-07-19 02:34 | NUR ---
NOTED PT TELE LEADS OFF, CHECKED, PT SITTING UP IN BED, HOLDING TEL BOX, INQUIRING WHAT THIS WAS. ORIENTATED, LEADS BEING PLACED, PT STATES WHY IS THAT SAYING TOAD, REFERING TO IV POLE. MOVED IV PUMP AWAY FROM BED, OFFERED EAR PLUGS TO SEE IF THAT HELPS DECREASE THE PUMP SOUND. BED ALARM ON, TELE READING HR 73.
--- NOTE | 2023-07-19 02:49 | NUR ---
NOTED TEL LEADS OFF AGAIN, PT WITH ALL LEADS OFF, HOLDING TEL BOX, UNAWARE OF WHAT IT WAS, SAID HE NEEDED TO USE THE BATHROOM. STOOD AT BEDSIDE, VOIDED 100; DOES NOT STAND STRAIGHT, IS BENT OVER WHEN STANDING. BACK TO BED, TELE REPLACED, BED ALARM ON, AGAIN ASKED WHAT THAT THING WAS SAYING REFERING TO THE IV PUMP. EDUCATED, PLACED POLE AWAY FROM BED, AND USED A TOWEL TO COVER UP THE BACK TO DECREASE THE SOUND.
--- NOTE | 2023-07-19 04:04 | NUR ---
PATIENT FOUND WITH TELE LEADS OFF. NEW TELE PADS/LEADS APPLIED. PATIENT REORIENTED TO HOSPITAL SETTING. RESTING IN BED WITH BED ALARM ON. CALL LIGHT WITHIN REACH.
[2023-07-19 05:36] LABS: BASOPHILS 0.9 % (0-2); EOSINOPHILS 1.5 % (0-6); HEMOGLOBIN 11.7 g/dL (12.0-18.0); MCH 31.4 (27-36); MCHC 34.4 g/dl (30-36); MCV 91.2 fl (81-99); MONOCYTES 12.5 % (0-12); NEUTROPHILS 64.1 % (39-80); PLATELET COUNT 275 K/uL (140-440); RBC 3.72 M/ul (4.3-5.7)
--- NOTE | 2023-07-19 05:36 | NUR ---
PATIENT STOOD AT BEDSIDE TO USE URINAL. TOLLERATED WELL. CONTINUES TO HAVE BASELINE CONFUSION. REDIRECTS AND REORIENTS WELL. REORIENTATION IS VERY SHORT LIVED. VSS. DENIES ANY PAIN AT THIS TIME. CALL LIGHT WITHIN REACH. BED ALARM ON.
[2023-07-19 05:51] LABS: ALBUMIN/GLOBULIN RATIO 0.97 (1.1-2.4); ANION GAP 13.9 (7-21); BILIRUBIN, TOTAL 0.5 ng/dL (0.2-1.0); BUN/CREATININE RATIO 18.75 (6.0-28.6); CALCIUM 8.3 mg/dL (8.5-10.1); CREATININE, SERUM 0.8 mg/dL (0.70-1.30); POTASSIUM 3.9 mmol/L (3.5-5.1); PROTEIN, TOTAL 6.1 g/dL (6.4-8.2)
--- NOTE | 2023-07-19 07:10 | NUR ---
REPORT RECIEVED FROM JHONY THAKKAR. PT SITTING UP IN BED AND RESPONDS WHEN ADDRESSED. PT REQUESTING ICE WATER AND TEA, PROVIDED. PT DENIES ANY OTHER NEEDS AT THIS TIME. CALL LIGHT IN REACH.
--- NOTE | 2023-07-19 07:15 | NUR ---
REPORT RECIEVED FROM JHONY THAKKAR. PT SITTING UP IN BED AND RESPONDS WHEN ADDRESSED. PT WATCHING TV. PT DENIES ANY NEEDS AT THIS TIME. CALL LIGHT IN REACH. BED ALARM ON. IV INFUSING WNL.
--- NOTE | 2023-07-19 08:44 | NUR ---
IN WITH SN JOSEPH TO ADMINISTER MEDICAITON, SEE MAR. PT SITTING UP IN BED VISITING WITH WHO IS AT BEDSIDE. IV FLUSHES AND IS INFUSING WNL. ASSESSMENT COMPLETE. LUNG SOUNDS CLEAR. BOWEL TONES ACTIVE. ABD NON-TENDER WITH PALPATION. ABD SOFT WITH PALPATION. PEDAL PULSES PALPABLE, EQUAL. PT DENIES PAIN AT THIS TIME. PT DENIES NUMBNESS/TINGLING AT THIS TIME. PT DENIES N/V AT THIS TIME. PT DENIES SORE THROAT. PT DENIES ANY OTHER NEEDS AT THIS TIME. CALL LIGHT IN REACH. BED ALARM ON. AT BEDSIDE.
[2023-07-19] MEDS ORDERED: ACETAMINOPHEN 325 MG TAB PO PRN (10:00)
[2023-07-19] MEDS ORDERED: LACTATED RINGER'S 1,000 ML IV SCH (10:00)
[2023-07-19] MEDS ORDERED: ondansetron HCL 4 MG/2 ML VIAL IV PRN (10:00)
[2023-07-19] MEDS ORDERED: ACETAMINOPHEN 650 MG SUPP PR PRN (10:00)
[2023-07-19] MEDS ORDERED: PROCHLORPERAZINE EDISYLATE 10 MG/2 ML VIAL IV PRN (10:00)
[2023-07-19] MEDS ORDERED: LIDOCAINE HCL 2% 5 ML SDV ONE (10:11)
[2023-07-19] MEDS ORDERED: propofoL 200 MG/20 ML VIAL ONE (10:11)
--- NOTE | 2023-07-19 10:20 | NUR ---
IN ROOM TO PLACED ALLERGY BAND. PT SITTING UP IN BED AND RESPONDS WHEN ADDRESSED. AT BEDSIDE. SURGERY TEAM HERE TO TAKE PT TO PROCEDURE. PT ABLE TO SCOOT ONTO STRETCHER. NO OTHER NEEDS FROM THIS RN.
[2023-07-19] MEDS ORDERED: CEFAZOLIN SOD 1,000 MG/10 ML VIAL ONE (10:28)
[2023-07-19] MEDS ORDERED: SODIUM CHLORIDE 0.9% 20 ML IV ONE (10:28)
--- NOTE | 2023-07-19 10:57 | NUR ---
07/19/23 1057 Sheets,Jennifer 1043 PT ARRIVES TO PACU ON 3L VIA NC, PT ASLEEP AND RESP EVEN AND UNLABORED. VSS. 1051 PT WAKES TO TACTILE STIMULI AND IS REORIENTED TO PACU. "DID IT GO ALRIGHT?" PT DENIES NAUSEA AND PAIN. PT COUGHING OFF AND ON. 1056 "I AM A LITTLE SLEEPY" PT RESTING IN BED IN HIGH FOWLERS AND DENIES CONCERNS.
--- NOTE | 2023-07-19 11:13 | NUR ---
PT ARRIVES BACK TO ROOM VIA STRETCHER WITH NIKA Maldonado RN. DR. LANGLEY IN ROOM TALKING TO . PT ABLE TO AMBULATE FROM STRETCHER TO BED. PT NOTED TO HAVE UNSTEADY GAIT. PT SITTING UP IN BED. VITALS COMPLETE. TELE PLACED BACK ON PT. FLUIDS STARTED, SEE MAR. PT PLACED ON CPOX. WATER PROVIDED. PT TAKES SIP OF WATER WITH NO ISSUES. PT AND DENY ANY OTHER NEEDS AT THIS TIME. CALL LIGHT IN REACH. BED ALARM ON.
--- NOTE | 2023-07-19 12:33 | NUR ---
THIS RN CALLED AND TALKED TO DR. MOSELEY TO CLARIFY PRN ORDER FOR HYDRALAZINE. ALSO ASKED REGARDING IF PT CONTINUES TO HAVE EMESIS AFTER MEALS AND DRINKING WATER IF PT SHOULD BE NPO THERE IS NO SPEECH THERAPY AT THIS TIME. PER DR. MOSELEY "LETs SEE HOW LUNCH GOES, IF HE CONTINUES TO HAVE EMESIS WE CAN MAKE HIM NPO." VERIFIED WITH READBACK.
--- NOTE | 2023-07-19 12:39 | NUR ---
IN WITH JHONY VERMA AND LISSETTE, PT TO ROUND ON PT. PT SITTING UP IN BED, AT BEDSIDE. PT ESCORTED WITH FWW AND GAIT BELT TO TOILET. PHYSICAL THERAPY WORKING WITH PT IN ROOM.
[2023-07-19] MEDS ORDERED: DEXTROSE 5% IV ONE (13:00)
[2023-07-19] MEDS ORDERED: POTASSIUM CHLORIDE IV ONE (13:00)
[2023-07-19] MEDS ORDERED: D5W 1/2 NS + 10 KCL 1,000 ML IV SCH (13:00)
[2023-07-19] MEDS ORDERED: NACL 0.45% IV ONE (13:00)
--- NOTE | 2023-07-19 13:04 | NUR ---
IN ROOM TO UPDATE PT AND PTs ON POC. LISSETTE, PT IN ROOM. PT AND PTs UPDATED ON POC. PT AND PTs AGREEABLE. OFFERED SPIRITUAL CARE TO COME IN AND TALK WITH PT AND PTs . PTs DECLINES AT THIS TIME. VITALS COMPLETE. PRN MEDICATION ADMINISTERED FOR BP, SEE MAR. PT AND PTs DENY ANY OTHER NEEDS AT THIS TIME. CALL LIGHT IN REACH. BED ALARM ON.
--- NOTE | 2023-07-19 13:09 | NUR ---
IN WITH JHONY VERMA TO ADMINISTER MEDICATION PER MAR. PT SITTING UP IN BED, APPEARS TIRED. AT BEDSIDE. PT STATING "I'M GROGGY TODAY". PT ENCOURAGED TO LIE BACK AND SLEEP A LITTLE, LIGHTS DIMMED, CALL LIGHT IN REACH, BED IN LOWEST POSITION, BED ALARM ON, IN RECLINER. NO OTHER NEEDS NOTED.
--- NOTE | 2023-07-19 14:55 | NUR ---
THIS RN TALKED TO DR. MOSELEY REGARDING PTs IV FLUIDS ONCE THIS ONE TIME BAG OF D5 1/2 NS WITH 10mEq OF POTASSIUM WHAT FLUIDS DR. MOSELEY WOULD LIKE. PER DR. MOSELEY "I WANTED THEM CONTINUOUS, LETS DECREASE THE RATE OF THAT BAG TO 75mL/hr FROM THE 100mL/hr AND MAKE IT CONTINUOUS." VERBAL ORDERS RECIEVED, VERIFIED WITH READBACK. ALSO ASKED DR. MOSELEY IF SHE WOULD LIKE PT TO HAVE ANY MORNING LABS, VERBAL ORDERS FOR "CBC AND CMP FOR THE NEXT FIVE DAYS IN THE AM." VERIFIED WITH READBACK. IN ROOM TO DECREASE FLUID RATE TO 75mL/hr PER DR. MOSELEY. PT SITTING UP IN BED VISITING WITH . PT DENIES ANY OTHER NEEDS. CALL LIGHT IN REACH. BED ALARM ON. AT BEDSIDE.
[2023-07-19] MEDS ORDERED: ENALAPRILAT DIHYDRATE 1.25 MG/ML VIAL IV SCH (15:00)
[2023-07-19] MEDS ORDERED: hydrALAZINE HCL 20 MG/ML VIAL IV PRN (15:00)
[2023-07-19] MEDS ORDERED: NITROGLYCERIN0.4 MG PO (16:10)
[2023-07-19] MEDS ORDERED: ATORVASTATIN CA40 MG PO (16:11)
[2023-07-19] MEDS ORDERED: DONEPEZIL HCL10 MG PO (16:17)
[2023-07-19] MEDS ORDERED: ELIGARD22.5 MG SUB-Q (16:20)
[2023-07-19] MEDS ORDERED: METFORMIN HCL500 M1 PO (16:23)
--- NOTE | 2023-07-19 16:46 | NUR ---
IN WITH SN JOSEPH TO ROUND ON PT. PT SITTING UP IN BED HOLDING TELE BOX, PT EDUCATED ON TELE BOX. AT BEDSIDE. ASSESSMENT COMPLETE. LUNG SOUNDS CLEAR. BOWEL TONES ACTIVE. ABD SOFT, TENDER WITH PALPATION. PT NOTED TO SPIT UP WHITE FOAMY SECRETION. HEART RATE BRADYCARDIC BETWEEN 57-61 BPM. PT A&O TO SELF. PT REPORTING PAIN TO UPPER ABD 3/10. PT NOTED TO ASK "SO HAVE WE FIGURED OUT WHAT IS GOING ON?" PT INFORMED OF PROCEDURE FROM THIS MORNING. PT SHOWN IMAGES FROM PROCEDURE. ALSO ASSISTS IN TALKING TO PT REGARDING POC AT THIS TIME AND WHAT HAS HAPPENED. PT AGREEABLE AND STATES "OKAY, THANK YOU." B/P NOTED TO BE 157/90. PT LAYING IN BED, DENIES ANY OTHER NEEDS AT THIS TIME. CALL LIGHT IN REACH. BED ALARM ON. PTs AT BEDSIDE DENIES ANY NEEDS.
--- NOTE | 2023-07-19 16:46 | NUR ---
IN WITH JHONY VERMA FOR SECOND ASSESSMENT. PT SITTING UP IN BED, AT BEDSIDE. PT REPORTS PAIN ACROSS ABDOMINAL AREA, 3/10. SHOWS PT PICTURES FROM EARLIER PROCEDURE TODAY TO DESCRIBE WHY HE IS HAVING PAIN. PT EXPRESSES UNDERSTANDING AT THE MOMENT. DURING ASSESSMENT PT HEAVES AND SPITS MODERATE AMOUNT OF WHITE FOAMY SECRETIONS. LUNG SOUNDS CLEAR IN ALL LOBES, HEART TONES HEARD, HR NOTED AT 61. PULSES FELT IN BUE AND BLE, CAP REFILL ADEQUATE. BOWEL TONES HEARD, NON-TENDER. ASKED PT HOW ABDOMEN FELT AFTER LISTENING AND TOUCHING, PT NOW STATES HE HAS NO PAIN. VS TAKEN. BP NOTED TO BE 157/90(105). BED IN LOWEST POSITION, BED ALARM ON, STILL AT BEDSIDE, CALL LIGHT IN REACH, NO OTHER NEEDS NOTED.
--- NOTE | 2023-07-19 18:20 | NUR ---
IN TO ANSWER CALL LIGHT. PTs AT BED SIDE AND STATES "HE IS STARTING TO GET A LITTLE AGITATED." PT NOTED TO BE ATTEMPTING TO LAY ON RIGHT SIDE IN BED. GOWN NOTED TO BE PULLED OFF PT. PT NOTED TO BE TUGGING AT TELE WIRES. PT EDUCATED ON TELE WIRES, PT STATES "OH, OKAY." PT STATES "NORMALLY THERE IS A DOOR THERE AND I CAN JUST WALK THROUGH IT AND GO TO MY ROOM." PT NOTED PT BE POINTING AT THE WHITEBOARD. PT REORIENTED AND INFORMED THAT PT IS IN THE HOSPITAL AND PT STATES "OH, THAT IS RIGHT. OKAY. THANK YOU." THIS RN ASSISTED PT WITH PLACING GOWN BACK ON. PT STATES "I HAVE ALL THESE WIRES ON ME." THERAPUTIC COMMUNICATION AND EDUCATING PT ON ALL THE "WIRES" PT IS HOOKED UP TO. PT STATES "OH, OKAY. THANK YOU." PT HOB LOWERED SO PT CAN REST ON SIDE. PT STATES "THANK YOU." PT DENIES ANY OTHER NEEDS AT THIS TIME. CALL LIGHT IN REACH. BED ALARM ON. AT BEDSIDE DENIES ANY NEEDS.
--- NOTE | 2023-07-19 18:25 | NUR ---
IN BED ALARM ALARMING. PT NOTED TO BE SITTING UP ON EDGE OF BED. PT NOTED TO BE ATTEMPTING TO GET UP FROM BED. ASKED PT IF PT NEEDS TO USE RESTROOM. PT STATES "YES." 1PA WITH FWW FROM BED TO RESROOM. JHONY ANDERSON IN AND UPDATES THIS RN THAT WOULD LIKE A UA. CLEAN CATCH UA OBTIANED AND SENT TO LAB. 1PA WITH FWW BACK TO BED. SN JOSEPH REMAINS IN ROOM WITH PT AND PTs . NO NEEDS FROM THIS RN.
[2023-07-19] MEDS ORDERED: OLANZapine 10 MG VIAL IM PRN (18:30)
--- NOTE | 2023-07-19 18:37 | NUR ---
IN PT BED ALARM IS GOING OFF. PT SITTING ON EDGE OF BED, REQUESTING USE OF THE RESTROOM. GAIT BELT APPLIED, PT AMBULATES WITH FWW TO RESTROOM. CLEAN CATCH OBTAINED. PT WASHES HANDS AT SINK, AMBULATES BACK TO BED. REINFORCED EDUCATION ON CPOX LINES, IV LINES, AND TELEMTRY LINES ON HIS BODY. PT REASSURED THAT HE IS SAFE AND LINES ARE NEEDED. AT BEDSIDE ASSISTING WITH REORIENTATION. PT PROVIDED WITH HIS BAG OF CLOTHES TO LOOK THROUGH, PT CURRENTLY FIXATED ON A PAIR OF GLOVES HE WAS PREVIOUSLY WEARING. STATES SHE HAS THE GLOVES WITH HER AT THEIR HOUSE. TV TURNED ON TO PTs FAVOURITE SHOWS, PT WATCHING TV NOW. LEMON GLYCERINE SWAB SUPPLIED FOR PT TO SUCK ON. BED ALARM ON, BED IN LOWEST POSITION, CALL LIGHT IN REACH. NO OTHER NEEDS NOTED AT THIS TIME.
[2023-07-19 18:40] LABS: BILIRUBIN, URINE NEGATIVE (negative); BLOOD/HGB, URINE NEGATIVE (Negative); KETONE, URINE SMALL (Negative); LEUK ESTERASE, URINE NEGATIVE (negative); NITRITE, URINE NEGATIVE (negative); PH, URINE 6.5 (5-7)
--- NOTE | 2023-07-19 19:12 | EKG ---
[facility] [address] [place] [address] Signed Sinus bradycardia with 1st degree AV block Septal infarct (cited on or before 10-DEC-2022) ST \T\ T wave abnormality, consider anterolateral ischemia Abnormal ECG When compared with ECG of 18-JUL-2023 18:18, (Unconfirmed) AL interval has increased Vent. rate has decreased BY 26 BPM Questionable change in initial forces of Septal leads T wave inversion now evident in Anterolateral leads Confirmed by Cristine Saleem ([id number]) on 07/19/2023 7:12:46 PM Electronically Signed By: CRISTINE SALEEM MD 07/19/231911 PATIENT NAME: JULIUS HARRIS III Electrocardiogram DATE OF : 42 PHYSICIAN: CRISTINE SALEEM MD REPORT #: [id number] REPORT IS CONFIDENTIAL AND NOT TO BE RELEASED WITHOUT AUTHORIZATION
--- NOTE | 2023-07-19 19:12 | EKG ---
[facility] [address] [place] [address] Signed atrial fibriallation, bradycardia (cited on or before 29-AUG-2016) ST \T\ T wave abnormality, consider anterolateral ischemia Abnormal ECG When compared with ECG of 04-JUL-2023 15:46, premature supraventricular complexes are now present Questionable change in initial forces of Anterior leads Non-specific change in ST segment in Inferior leads Nonspecific T wave abnormality has replaced inverted T waves in Inferior leads Confirmed by Cristine Saleem ([id number]) on 07/19/2023 7:11:54 PM Electronically Signed By: CRISTINE SALEEM MD 07/19/231911 PATIENT NAME: JULIUS HARRIS III Electrocardiogram DATE OF : 42 PHYSICIAN: CRISTINE SALEEM MD REPORT #: [id number] REPORT IS CONFIDENTIAL AND NOT TO BE RELEASED WITHOUT AUTHORIZATION
--- NOTE | 2023-07-19 19:43 | NUR ---
REPORT RECEIVED FROM DAY RN. PATIENT IN BED WITH AT BEDSIDE. PATIENT WITH INCREASED CONFUSSION AND AGITATION. FUMBLING THROUGH ITEMS ON BEDSIDE TABLE INCLUDING TISSUES, MOUTH SWABS AND WIPES. PATIENT ABLE TO REDIRECT EAISLY. NO NEEDS AT THIS TIME. REMAINS AT BEDSIDE, CALL LIGHT WITHIN REACH, BED ALARM ON.
--- NOTE | 2023-07-19 19:46 | NUR ---
PT IN ROOM. PT AGITATED WITH THE TELE BOX, LEADS, IS TELLING HIM LEAVE IT ALONE. DON'T TOUCH IT. PT REPEATS QUESTIONS, REPEATS ANSWERS. TELE READING 121 AT THIS TIME, SR. PLAN TO CALL ABOUT POSSIBLE DCING TELE TO DECREASE HIS AGITATION.
--- NOTE | 2023-07-19 19:52 | NUR ---
MD NOTIFIED OF PATIENTS INCREASED AGITATION AND RN CONCERNS WITH TELE LEADS INCREASING PATIENTS AGITATION AND CONFUSION. NEW TELEPHONE ORDER RECEIVED FOR 5MG IM ZYPREXA NOW AND D/C OF TELE MONITOR. ORDERS VERIFIED VIA VERBAL READ BACK.
[2023-07-19] MEDS ORDERED: OLANZapine 10 MG VIAL IM ONE (20:00)
--- NOTE | 2023-07-19 20:47 | NUR ---
PATIENT RESTLESS IN BED. FUMBLING THROUGH ITEMS ON HIS BEDSIDE TABLE. TAKING IS GOWN OFF. PATIENT IS CONFUSED AND AGITATED AT TIMES. REDIRECTS FAILRY EAISLY ALTHOUGH IT IS SHORT LIVED. VSS. PATIENTS IS AT BEDSIDE AND WILL BE LEAVING FOR THE NIGHT SOON. HS MEDICATIONS GIVEN. PRN FOR AGITATION GIVEN. TOLLERATED WELL. BED ALARM ON, CALL LIGHT WITHIN REACH.
--- NOTE | 2023-07-19 21:05 | NUR ---
BED ALARM SOUNDING. PATIENT TRYING TO GET OUT OF BED. ASSISTED WITH URINAL. PATIENT AGITATED TRYING TO BIODIESEL PLANT OPERATIONS ENGINEER A " KNIFE" ON THE FLOOR. THERE IS NO KNIFE ON THE FLOOR. PATIENT REDIRECTED. BACK IN BED. BED ALARM ON. CALL LIGHT WITHIN REACH.
--- NOTE | 2023-07-19 22:17 | NUR ---
PROCESS DEVELOPMENT TECHNICIAN ASSISTED PATIENT FROM BED TO BATHROOM TO USE URINAL AND THEN BACK TO BED. PATIENT IS NOW IN BED AT THIS TIME. CALL LIGHT WITHIN REACH, NO FURTHER NEEDS AT THIS TIME.
[2023-07-19] MEDS ORDERED: DEXTROSE 5% IV SCH (23:00)
[2023-07-19] MEDS ORDERED: POTASSIUM CHLORIDE IV SCH (23:00)
[2023-07-19] MEDS ORDERED: NACL 0.45% IV SCH (23:00)
--- NOTE | 2023-07-19 23:09 | NUR ---
PATIENT TRIED TO GET OUT OF BED, WEB PRODUCTION MANAGER WENT IN AT THIS TIME. PATIENT CLAIMED HE WANTED TO GET OUT OF BED TO GO OUTSIDE. WEB PRODUCTION MANAGER REMINDED PATIENT THAT HE IS IN A HOSPITAL AND NOT AT HOME. PATIENT WAS CONFUSED AND ASKED WHY. WEB PRODUCTION MANAGER PUT PATIENT BACK TO BED. BED ALARM IS SET, CALL LIGHT WITHIN REACH, NO FURTHER NEEDS AT THIS TIME.
--- NOTE | 2023-07-19 23:11 | NUR ---
PATIENT WAS TRYING TO GET OUT OF BED. PATIENT CLAIMED THAT HE WANTED TO SEE WHAT THE NOISE WAS OUTSIDE OF HIS ROOM AND WHY THERE WERE PEOPLE IN HIS HOUSE. PHILOSOPHY LECTURER REMINDED PATIENT THAT HE IS IN A HOSPITAL AND NOT AT HOME. PATIENT ALSO PULLING AT IV, RN NOTIFIED. PHILOSOPHY LECTURER PUT PATIENT BACK TO BED. BED ALARM IS SET, CALL LIGHT WITHIN REACH, NO FURTHER NEEDS AT THIS TIME.
--- NOTE | 2023-07-19 23:21 | NUR ---
@7701 PT BED ALARM SOUNDING. PT SITTING UP IN BED, HOLDING IV TUBING, REDIRECTABLE; ASKING "YOU GOT WOKE UP" STAYED IN ROOM WITH PT FOR APPROX 10 MIN PT. FALLS ASLEEP, THEN WAKES UP. SAYS HE IS TRYING TO SLEEP. BED ALARM ON. PT COVERED.
--- NOTE | 2023-07-19 23:48 | NUR ---
PATIENT WAS TRYING TO GET OUT OF BED. CYLINDER STEAMER AND RN PUT PATIENT BACK IN BED. BED ALARM IS SET, CALL LIGHT WITHIN REACH, NO FURTHER NEEDS AT THIS TIME.
--- NOTE | 2023-07-20 00:15 | NUR ---
BED ALARMING. PATIENT TRYING TO GET OUT OF BED. NOTED IV PULLED OUT AND ON THE FLOOR. NO BLEEDING TO IV SITE NOTED. PATIENT ASSISTED TO THE BATHROOM. DIFFICULTY FOLLOWING CUES TO USE WALKER. PT WITH INCREASED AGITATION STATING, "IF YOU JUST LEAVE ME BE I WILL BE DONE IN A MINUTE." PATIENT VOIDED SITTING ON THE TOILET. AMBULATED BACK TO BED WITH FWW AND 1 PA ASSIST. POSTURE HUNCHED AND DIFFICULTY FOLLOWING CUES FOR SAFETY. NEW GOWN AND UNDERWEAR PROVIDED. RN ASSISTED PATIENT WITH CHANGING ONCE BACK IN BED. NEW IV PLACED IN RIGHT WRIST. PATIENT TOLLERATED WELL WITH DISTRACTION CONVERSTION DURING INSERTION. IVF RUNNING WITH NO ISSUES AT THIS TIME. PATIENT RESTING IN BED. RN AT BEDSIDE TO ENSURE SAFETY. BED ALARM ON. CALL LIGHT WITHIN REACH.
--- NOTE | 2023-07-20 02:10 | NUR ---
PATIENT RESTING IN BED WITH EYES CLOSED. RESPIRATIONS EVEN AND UNLABORED. NEW BAG OF FLUIDS HUNG. BED ALARM ON. CALL LIGHT WITHIN REACH.
--- NOTE | 2023-07-20 02:58 | NUR ---
Assisted Pt 1-2 PA FWW from bed to bathroom and back. Assisted Pt with cleaning perineal area PRN. Gave Pt emesis bag for spitting phlegm. Checked and recorded pt's blood sugar. Call light left in reach. Bed alarm set. No other needs expressed by Pt.
--- NOTE | 2023-07-20 03:15 | NUR ---
Assisted Pt with emesis bag for phlegm production. No other needs expressed by Pt. Call light left in reach and bed alarm on. Left RN in room with Pt.
--- NOTE | 2023-07-20 03:38 | NUR ---
Scheduled medications given. Patient resting in bed with eyes closed. Rerpirations even and unlabored. Call light within reach. Bed alarm on.
--- NOTE | 2023-07-20 05:15 | NUR ---
PATIENT OUT OF BED. VOIDING QUANITY SUFFICIENT AT THIS TIME.
[2023-07-20 06:30] VITALS: BP 140/76
--- NOTE | 2023-07-20 06:30 | NUR ---
VSS PATIENT RESTING IN BED. RESPIRATIONS EVEN AND UNLABORED. CALL LIGHT WITHIN REACH. BED ALARM ON.
[2023-07-20 06:34] LABS: BASOPHILS 0.5 % (0-2); EOSINOPHILS 0.9 % (0-6); HEMATOCRIT 33.7 % (35.0-50.0); HEMOGLOBIN 11.3 g/dL (12.0-18.0); LYMPHOCYTES 19.4 % (24-44); MCH 31.1 (27-36); MCHC 33.7 g/dl (30-36); MCV 92.4 fl (81-99); MONOCYTES 9.9 % (0-12); NEUTROPHILS 69.3 % (39-80); PLATELET COUNT 258 K/uL (140-440); RBC 3.65 M/ul (4.3-5.7); RDW 13.8 (10.5-15.0)
[2023-07-20 06:48] LABS: ALBUMIN 2.9 g/dL (3.4-5.0); ALBUMIN/GLOBULIN RATIO 0.97 (1.1-2.4); ANION GAP 13.9 (7-21); BILIRUBIN, TOTAL 0.6 ng/dL (0.2-1.0); BUN/CREATININE RATIO 9.45 (6.0-28.6); CALCIUM 8.6 mg/dL (8.5-10.1); CREATININE, SERUM 0.74 mg/dL (0.70-1.30); POTASSIUM 3.9 mmol/L (3.5-5.1); PROTEIN, TOTAL 5.9 g/dL (6.4-8.2)
--- NOTE | 2023-07-20 07:09 | NUR ---
VERBAL REPORT RECEIVED FROM JHONY THAKKAR. PT RESTS IN BED WITH EYES CLOSED, RESP EVEN AND UNLABORED.
--- NOTE | 2023-07-20 07:30 | NUR ---
Assisted Pt 1PA FWW from bed to bathroom and back. No other needs expressed by Pt. Call light left in reach. Bed alarm set.
[2023-07-20 08:25] VITALS: BP 137/82
[2023-07-20 08:29] VITALS: BP 137/82
--- NOTE | 2023-07-20 08:43 | OR ---
[facility] [address], [place] [address] Signed DATE OF OPERATION: 07/19/2023 SURGEON: Judson Langley MD PREOPERATIVE DIAGNOSIS: Distal esophageal dysphagia with possible mass or stricture. 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 PROCEDURES: EGD with biopsies x3 at the GE junction. ESTIMATED BLOOD LOSS: Minimal. INDICATIONS: Julius is an 83-year-old gentleman with dementia who also has a history of strokes, diabetes, and prostate cancer. He received radiation therapy for his prostate cancer. He was receiving a monthly shot which he just completed last month. He resides at home with his . For the last couple of weeks, he has been having increasing distal esophageal dysphagia. He can chew and swallow food fine, but the solid food and even liquids are coming back up undigested. He has lost about 5 pounds. His brought him to the emergency room for evaluation. Laboratory work was fine. Chest x-ray from 07/04/[address] scan from yesterday of his chest shows air-fluid levels with the contrast in the esophagus with a mildly dilated esophagus, wall thickening at the GE junction and the fundus. He now has two new lesions measuring 1.5 cm and 2.5 cm in the right lobe of his liver. Otherwise, the surrounding lymph nodes, lungs and mediastinum were unremarkable. I have been asked to admit him overnight as a general surgeon on-call. We did have our medical service see him as well for his medical issues. I had met with Julius and his earlier this morning. I went over the findings with them. He has been through previous colonoscopies. Consequently, they are familiar with this idea of endoscopy. They understand given his current situation, advance health and medical issues, he really needs monitored anesthesia care during the procedure. We generally would not dilate someone's esophagus while taking aspirin but we certainly could take biopsies. They understand there is risk including, but not limited to gas bloating, crampy abdominal pain, bleeding, perforation requiring surgery and missed diagnosis. They had expressed understanding wished to proceed. DESCRIPTION OF PROCEDURE: Electronically Signed By: JUDSON LANGLEY MD 07/20/23 0843 PATIENT NAME: JULIUS HARRIS [facility] OPERATIVE REPORT DATE OF : 42 REPORT #: [id number] PHYSICIAN: JUDSON LANGLEY MD PCP: ENEDINA BYRD REPORT IS CONFIDENTIAL AND NOT TO BE RELEASED WITHOUT AUTHORIZATION [facility] [address], [place] [address] Signed Julius was taken into our endoscopy suite and placed in a supine semi-recumbent position. He was given monitored anesthesia care with propofol infusion per our nurse seasoner hand. The posterior oropharynx was anesthetized with Hurricaine spray. A bite block was utilized for the case. The adult gastroscope was introduced and advanced under direct visualization of the camera. He had saliva and food particles in the esophagus. Once we got up to the GE junction, he has friable tumor involving the circumference of the GE junction and as expected, the adult gastroscope would not pass through. It was quite friable touching the tumor with end of the scope. We went ahead and took three circumferential biopsies of this area for pathologic review. After this, the gas was suctioned out and the gastroscope was removed. Julius tolerated the procedure quite well. RECOMMENDATIONS: Julius is going to be returning to his room currently on IV fluids and we will allow him some clear liquids as tolerated along with some Ensure. I will talk this over with his as well. Judson Langley MD ALB/MODL /[id number] cc: MD Enedina Wu, MD Dr. Shikha Kumar Dr. Copies: ARNOL MARQUEZ MD Electronically Signed By: JUDSON LANGLEY MD 07/20/23 0843 PATIENT NAME: JULIUS HARRIS III OPERATIVE REPORT DATE OF : 42 REPORT #: [id number] PHYSICIAN: JUDSON LANGLEY MD PCP: ENEDINA BYRD-[facility] REPORT IS CONFIDENTIAL AND NOT TO BE RELEASED WITHOUT AUTHORIZATION [facility] [address] [facility] [place] [address] Signed RYLEY MULLEN MD, ANDREW L MD ~ Electronically Signed By: JUDSON LANGLEY MD 07/20/23 0843 PATIENT NAME: JULIUS HARRIS [facility] OPER[facility]IVE REPORT DATE OF : 42 REPORT #: [id number] PHYSICIAN: JUDSON LANGLEY MD PCP: ENEDINA BYRD REPORT IS CONFIDENTIAL AND NOT TO BE RELEASED WITHOUT AUTHORIZATION
--- NOTE | 2023-07-20 08:43 | CONS ---
[facility] [address] [place], [place] [address] Signed DATE OF CONSULTATION: 07/19/2023 CHIEF COMPLAINT: Esophageal dysphagia. HISTORY OF PRESENT ILLNESS: Julius is an 83-year-old gentleman with moderate Alzheimer's dementia and a previous history of strokes and prostate cancer, who the last two weeks has been having trouble with vomiting. He is able to chew and swallow the food fine, but then after a while it comes back up completely undigested. He is even having trouble with some liquids. He has lost about 5 pounds in the last couple of weeks. His decided to bring him to the emergency room yesterday for evaluation. In the emergency room, he is unremarkable. His vital signs and the labs were unremarkable as well. He had a chest x-ray back on July 03, which was negative. The CT scan yesterday showed contrast air fluid levels in the mildly dilated esophagus, right down the GE junction. There was a little bit of thickening in the GE junction and fundus as well. He has a 1.5 cm and a 2.5 cm lesion that is new in the right lobe of his liver concerning for metastatic disease. Otherwise the lungs, lymph nodes, and mediastinum are all unremarkable. I was asked to admit him as a general surgeon on-call. We did have our medical service see him due to all of his medical issues. Thankfully, his is with him today as she really has to fill in the details as his memory is quite poor. PAST MEDICAL HISTORY: Multiple strokes, diabetes, hypertension, hyperlipidemia, Alzheimer's dementia, coronary artery disease, obstructive sleep apnea, but cannot tolerate CPAP. Prostate cancer and he just received his last Lupron shot and has undergone radiation therapy. He has chronic constipation and ataxia as well. PAST SURGICAL HISTORY: Includes cardiac stents, bilateral knee surgeries, at least 2 negative colonoscopies but no prior upper endoscopy. SOCIAL HISTORY: He does not smoke or drink. He is to his , Richa who is his vkxob-sq-sizopieh at [phone]. He also has one daughter, Julius at [phone]. He is a full code. They live in [place], [place]. They use Enedina Tran as their nurse practitioner, Dr. Mchugh is his bottom saw operator at [facility] in [place], [place]. Dr. Arnol Marquez is his medical oncologist, Dr. Beth Rowland is his radiation oncologist and Dr. Harinder Alcantar is his urologist. FAMILY HISTORY: None. Electronically Signed By: JUDSON LANGLEY MD 07/20/23 0843 PATIENT NAME: JULIUS HARRIS [facility] CONSULTATION DATE OF : 42 REPORT #: [id number] PHYSICIAN: JUDSON LANGLEY MD PCP: ENEDINA TRANP-C REPORT IS CONFIDENTIAL AND NOT TO BE RELEASED WITHOUT AUTHORIZATION [facility] [address] [place] [id number] Signed REVIEW OF SYSTEMS: I reviewed 10 systems with Julius and his and his was very helpful. ALLERGIES: Versed causes a paradoxical reaction. MEDICATIONS: 1. Atorvastatin. 2. Benazepril. 3. Carvedilol. 4. Metformin. 5. Multivitamin. 6. Donepezil. 7. Memantine. 8. Aspirin 325 mg p.o. daily. PHYSICAL EXAMINATION: VITAL SIGNS: His blood pressure is 170/81, his heart rate is 54, respiratory rate is 15, temperature is 98.4. He is 98% on room air. He is 5 feet 11 inches, 81 kg with a body mass index of 25. GENERAL: Julius is an 83-year-old gentleman, sitting upright in his hospital bed with his at the bedside. He is alert, awake, and interactive. He clearly has moderate memory issues. LUNGS: Clear to auscultation bilaterally. HEART: Little bradycardic without murmur. ABDOMEN: Soft, flat and nontender. Specifically, there is no pacemaker noted on this chest wall as per previous notes. LABORATORY DATA: His white blood cell count is 7.4, hemoglobin 11.7 neutrophils 64. His electrolytes are unremarkable. Creatinine 0.80. Liver function tests are negative. His albumin is 3.0. His troponin was negative. His lipase is negative. RADIOGRAPHIC STUDIES: A chest x-ray from 07/04/[address] scan from yesterday showed contrast air fluid levels in the esophagus, right down to the GE junction. His esophagus is mildly dilated. There was a little thickening at the GE junction in the fundus. There is now 1.5 cm and a 2.5 cm lesion in the right lobe of his liver concerning for metastatic disease. The lungs, lymph nodes, and mediastinum were all unremarkable. ASSESSMENT AND PLAN: Julius is an 83-year-old gentleman, who has something concerning at the GE junction; whether or not that is a stricture versus a mass is hard to know at this point. It has been recommended he undergo upper endoscopy. I reviewed upper endoscopy with Julius and Electronically Signed By: JUDSON LANGLEY MD 07/20/23 0843 PATIENT NAME: JULIUS HARRIS [facility] CONSULTATION DATE OF : 42 REPORT #: [id number] PHYSICIAN: JUDSON LANGLEY MD PCP: ENEDINA TRAN REPORT IS CONFIDENTIAL AND NOT TO BE RELEASED WITHOUT AUTHORIZATION [facility] [address] [place], [place] [address] Signed his in detail. They understand endoscopy having been through colonoscopies in the past. There is risk including, but not limited to gas bloating, crampy abdominal pain, bleeding, perforation requiring surgery, and missed diagnosis. We also reviewed the need for monitored anesthesia care given his advanced age, dementia and his allergy to Versed along with the fact that he is unable to swallow much other than thin liquids. We also reviewed the two new lesions in the right hepatic lobe of the liver. His says she will bring that up to Dr. Marquez, the medical oncologist. Currently, we have called our crew and we should be able to get this underway in about 45 to 60 minutes. Judson Langley MD ALB/MODL /[id number] cc: MD Judson Guadalupe MD Dr. Kristen Riegert David Hutton Dana Hampton, JAMES Rowland Copies: ARNOL MARQUEZ MD, ANDREW L MD HUTTON, DAVID A MD ~ Electronically Signed By: JUDSON LANGLEY MD 07/20/23 0843 PATIENT NAME: JULIUS HARRIS [facility] CONSULTATION DATE OF : 42 REPORT #: [id number] PHYSICIAN: JUDSON LANGLEY MD PCP: ENEDINA TRAN REPORT IS CONFIDENTIAL AND NOT TO BE RELEASED WITHOUT AUTHORIZATION
[2023-07-20 09:04] VITALS: BP 135/82
--- NOTE | 2023-07-20 10:23 | NUR ---
SPOKE WITH DR SHIVAM CAICEDO NEED TO TRANSFER PT. HE ASKED THAT CALLS BE MADE TO TRANSFER CENTERS AND DR MOSELEY WILL COMPLETE THE DOC TO DOC WHEN NEEDED. CALL TO [facility] AND THEY WILL CALL BACK WITH AVAILABILITY
--- NOTE | 2023-07-20 12:21 | NUR ---
Board has been updated and call light has been placed within reach. No request from patient at this time.
--- NOTE | 2023-07-20 12:38 | NUR ---
PT TO TOILET WITH 1 PERSON SBA AND FWW. VOIDS CLEAR YELLOW URINE. PT BACK TO BED, TOLERATES ACTIVITY WELL. BED ALARM ON. SPOUSE AT BEDSIDE. CALL LIGHT IN REACH.
--- NOTE | 2023-07-20 13:28 | NUR ---
LEAVES UNITS, STATES SHE IS TAKING THE PT'S CLOTHES HOME.
[2023-07-20 14:07] VITALS: BP 160/90
[2023-07-20 14:12] VITALS: BP 160/90
--- NOTE | 2023-07-20 14:39 | NUR ---
IV IN WRIST TO SL FOR TRANSFER TO [facility]. VSS. PT TRANSFERS SELF TO [facility] [place], PT LEAVES MED-SURG WITH AMBULANCE CREW VIA GURNEY IN NO APPARENT DISTRESS.
--- NOTE | 2023-07-20 15:37 | NUR ---
REPORT PROVIDED TO VIA TELEPHONE TO JHONY PHAM AT [facility]. ALL QUESTIONS ANSWERED.
[2023-07-21 00:53] LABS: CARCINOEMBRYONIC ANTIGEN 1.7 ng/mL (())
--- NOTE | 2023-07-21 13:57 | EKG ---
[facility] [address] [facility] [place] [address] Signed Sinus bradycardia Anteroseptal infarct (cited on or before 29-AUG-2016) ST \T\ T wave abnormality, consider inferolateral ischemia Abnormal ECG When compared with ECG of 18-JUL-2023 18:55, (Unconfirmed) Questionable change in initial forces of Anterior leads Inverted T waves have replaced nonspecific T wave abnormality in Inferior leads Confirmed by Cristine Saleem ([id number]) on 07/21/2023 1:57:23 PM Electronically Signed By: CRISTINE SALEEM MD 07/21/23 1357 PATIENT NAME: JULIUS HARRIS [facility] Electrocardiogram DATE OF : 42 PHYSICIAN: CRISTINE SALEEM MD REPORT #: [id number] REPORT IS CONFIDENTIAL AND NOT TO BE RELEASED WITHOUT AUTHORIZATION
--- NOTE | 2023-07-24 12:34 | PATH ---
[facility] [address] [place], [place] [address] Signed SPECIMEN(S): A ESOPHAGEAL BIOPSY, GE JUNCTION SPECIMEN SOURCE: A. ESOPHAGEAL BIOPSY, GE JUNCTION CLINICAL HISTORY: Mass at GE junction FINAL PATHOLOGIC DIAGNOSIS: GE junction mass, biopsies: - Invasive, poorly differentiated adenocarcinoma. See comment. COMMENT: MSI and HER2 testing will be performed on A1, and reported by addendum. A diagnostic alert is initiated on this case by Stephanie Khan MD on June. For quality assurance coach, this case is reviewed by another member of [facility] (NIALL). AMB MICROSCOPIC EXAMINATION: Histologic sections of all submitted blocks are examined by light microscopy. These findings, together with the gross examination, support the pathologic diagnosis. GROSS DESCRIPTION: The specimen, labeled and designated "Fawn, GE junction mass biopsy," is received in formalin and consists of four stern soft tissue fragments, ranging from 0.1-0.2 cm. Entirely submitted in (A1). JS (under the direct supervision of a pathologist) The Gross Description was prepared using a voice recognition system. The report was reviewed for accuracy; however, sound-alike word errors, addition and/or deletions may occur. If there is any question about this report, please contact Client Services. ADDITIONAL NOTES: Immunohistochemical and/or in situ hybridization studies if performed in this case included appropriate positive controls that reacted as expected. This test was developed and its performance characteristics determined by [facility]. It has not been cleared or approved by the U.S. Food and Drug Administration. The FDA has determined that PATIENT NAME: JULIUS HARRIS III PATHOLOGY DATE OF : 42 REPORT #: [id number] PHYSICIAN: CAROLINA MCDANIEL PCP: MARYLU BYRD REPORT IS CONFIDENTIAL AND NOT TO BE RELEASED WITHOUT AUTHORIZATION [facility] [address] [place] [id number] Signed such clearance or approval is not necessary. This test is used for clinical purposes. It should not be regarded as investigational or for research. [facility] is certified under the Clinical Laboratory Improvement Amendments of 1988 (CLIA) as qualified to perform high complexity clinical laboratory testing. PERFORMING LABORATORY: Technical component was performed by [facility], [address] [place] [address] (CLIA# [id number]). Professional interpretation was performed by [facility] - [address] [id number] Diagnostician: Stephanie Khan MD Pathologist Electronically Signed 07/24/2023 Copies: ~ PATIENT NAME: JULIUS HARRIS III PATHOLOGY DATE OF : 42 REPORT #: [id number] PHYSICIAN: CAROLINA MCDANIEL PCP: BYRD,MARYLU AGRICULTURAL EQUIPMENT OPERATOR-C REPORT IS CONFIDENTIAL AND NOT TO BE RELEASED WITHOUT AUTHORIZATION
== END 2023-07-20 14:39 | disposition home or self-care (01) ==
LOC: ED 16:06 → MS 16:08
PROVIDERS: Emergency Medicine; Family Medicine; ADMIT Colon & Rectal Surgery; ATTEND Colon & Rectal Surgery
PROC: 0DB48ZX Excision of Esophagogastric Junction, Via Natural or Artificial Opening Endoscopic, Diagnostic (ICD-10-PCS; principal; 2023-07-19 10:30)
DX: C16.0 Malignant neoplasm of cardia (principal); K76.9 Liver disease, unspecified; C61 Malignant neoplasm of prostate; G30.9 Alzheimer's disease, unspecified; F02.80 Dementia in other diseases classified elsewhere, unspecified severity, without behavioral disturbance, psychotic disturbance, mood disturbance, and anxiety; I10 Essential (primary) hypertension; E11.9 Type 2 diabetes mellitus without complications; I25.10 Atherosclerotic heart disease of native coronary artery without angina pectoris; R63.4 Abnormal weight loss; G47.33 Obstructive sleep apnea (adult) (pediatric); Z95.5 Presence of coronary angioplasty implant and graft; Z79.82 Long term (current) use of aspirin; Z79.899 Other long term (current) drug therapy; Z88.8 Allergy status to other drugs, medicaments and biological substances
CPT/HCPCS: 00731; 36415; 71260; 80053; 81003; 82378; 83690; 84484; 85025; 93005; 93010; 96375; 97163; 99285-25; A9270; J0360; J0690; J1815; J2001; J2270; J2704; J3480; J7030; J7121; Q9967

== ENCOUNTER 2023-08-01 07:43 | Observation (INO) | payer MEDICARE, OTHER ==
[~2023-08-01] VITALS: Ht 180.3 cm; Wt 87.0 kg
[~2023-08-01 07:43] MED LIST changes: +ATORVASTATIN CA40 MG PO; +DONEPEZIL HCL10 MG PO; +ELIGARD22.5 MG SUB-Q; +METFORMIN HCL500 M1 PO; +NITROGLYCERIN0.4 MG PO
--- OUTSIDE RECORDS SUMMARY | 2023-08-01 07:46 | XMS ---
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 Landon has no Care Guidelines for this patient. [facility]12 MO[facility] T[facility] NOTE: Visits indicate total known visits. ED/[facility] VISIT TRACKING (12 MO.) 08/01/2023 07:44 [facility] [place] [facility] Emergency COMPLAINT: - SHORTNESS OF BREATH 07/04/2023 15:46 [facility] [place] TYPE: Emergency COMPLAINT: - CHEST PAIN DIAGNOSES: - Allergy status to other drugs, medicaments and biological substances - Alzheimer's disease, unspecified - Chest pain, unspecified - Dementia in other diseases classified elsewhere, unspecified severity, without behavioral disturbance, psychotic disturbance, mood disturbance, and anxiety - Essential (primary) hypertension - Hyperlipidemia, unspecified - penitentiary (current) use of oral hypoglycemic drugs - Other long-term (current) drug therapy - Type 2 diabetes [...] object, initial encounter - Hyperlipidemia, unspecified - metal pattern maker (current) use of oral hypoglycemic drugs - Other golf club manager (current) drug therapy - Presence of coronary angioplasty implant and graft - Type 2 diabetes mellitus without complications INPATIENT VISIT TRACKING (12 MO.) 07/20/2023 18:52 [facility] [place] TYPE: Medical Surgical DIAGNOSES: - Alzheimer's disease with late onset - Dementia in other diseases classified elsewhere, unspecified severity, without behavioral disturbance, psychotic disturbance, mood disturbance, and anxiety - Other dysphagia - GE Junction Mass 07/18/2023 16:08 [facility] [place] TYPE: Observation COMPLAINT: - DYSPHAGIA, ESOPHOGEAL ABN DIAGNOSES: - Abnormal weight loss - Allergy status to other drugs, medicaments and biological substances - Alzheimer's disease, unspecified - Atherosclerotic heart disease of [place] coronary artery without angina pectoris - Dementia in other diseases classified elsewhere, unspecified severity, without behavioral disturbance, psychotic disturbance, mood disturbance, and anxiety - Dysphagia, unspecified - Essential (primary) hypertension - Liver disease, unspecified - metal pattern maker (current) use of aspirin - Malignant neoplasm of cardia - Malignant neoplasm of prostate - Obstructive sleep apnea (adult) (pediatric) - Other golf club manager (current) drug therapy - Other specified disease of esophagus - Presence of coronary angioplasty implant and graft - Type 2 diabetes mellitus without complications [email or web address]
[2023-08-01] MEDS ORDERED: SODIUM CHLORIDE 0.9% 1,000 ML IV ONE (08:00)
[2023-08-01] MEDS ORDERED: ondansetron HCL 4 MG/2 ML VIAL IV PRN ×2 (08:00→12:30)
[2023-08-01 08:16] LABS: BASOPHILS 0.3 % (0-2); EOSINOPHILS 0.3 % (0-6); HEMATOCRIT 31.8 % (35.0-50.0); LYMPHOCYTES 12.3 % (24-44); MCH 31.6 (27-36); MCHC 34.5 g/dl (30-36); MCV 91.5 fl (81-99); MONOCYTES 10.6 % (0-12); NEUTROPHILS 76.5 % (39-80); PLATELET COUNT 433 K/uL (140-440); RBC 3.48 M/ul (4.3-5.7); RDW 13.7 (10.5-15.0)
[2023-08-01 08:33] LABS: ALBUMIN 2.5 g/dL (3.4-5.0); ALBUMIN/GLOBULIN RATIO 0.66 (1.1-2.4); ANION GAP 17.8 (7-21); BILIRUBIN, TOTAL 0.7 ng/dL (0.2-1.0); BUN/CREATININE RATIO 21.5 (6.0-28.6); CALCIUM 8.3 mg/dL (8.5-10.1); CREATININE, SERUM 0.93 mg/dL (0.70-1.30); POTASSIUM 3.8 mmol/L (3.5-5.1); PROTEIN, TOTAL 6.3 g/dL (6.4-8.2)
[2023-08-01] MEDS ORDERED: MORPHINE SULFAT15 MG PO (09:05)
--- NOTE | 2023-08-01 11:55 | NUR ---
UR CLINICAL REVIEW: 2MN EDDIE MEDICARE OBS 08/01/23 @ 1105 YES-MATCHES PLAN TO DISCHARGE HOME WITH HOSPICE CONSULT. 08/02/23
[2023-08-01] MEDS ORDERED: PHARMACY RENAL DOSE ADJUSTMENT 1 DOSE MISC PO SCH (12:00)
[2023-08-01 12:01] VITALS: BP 150/89
[2023-08-01] MEDS ORDERED: ACETAMINOPHEN 325 MG TAB PO PRN (12:30)
[2023-08-01] MEDS ORDERED: ARTIFICIAL TEARS 15 ML BTL OU PRN (12:30)
[2023-08-01] MEDS ORDERED: ATROPINE SULFATE 1% OPTH DROPS SL PRN (12:30)
[2023-08-01] MEDS ORDERED: IBUPROFEN 400 MG TAB PO PRN (12:30)
--- NOTE | 2023-08-01 12:35 | NUR ---
PT RESTING IN BED WITH PRESENT AT BEDSIDE. REQUESTING TO USE BATHROOM, ABLE TO UTILIZE URINAL, OFFERED ASSISTANCE BUT THEY PREFERRED TO TAKE CARE OF ELIMINATION NEEDS WITH URINAL ALONE. ALL PT CARE NEEDS MET.
--- NOTE | 2023-08-01 12:37 | NUR ---
New admit to the medical floor. Patient arrived to unit alert and oriented x3, responds appropriately to my questions. Patient reports he's been nauseated and short of breath. Patient is on 4L oxygen per nc, respirations non labored. Patient denies throat pain at this time, airway patent. Patient able to drink water and eat a soft diet without difficulty per pt and 's report. Sp02 100% at this time. at bedside assisting with cares. Patient denies needs, oriented him to room and call light.
[2023-08-01] MEDS ORDERED: ENOXAPARIN SODIUM 80 MG/0.8 ML SYR SUB-Q SCH (13:00)
[2023-08-01] MEDS ORDERED: SCOPOLAMINE 1 MG/3 DAYS PATCH 1 EACH TDSY TD SCH (13:00)
[2023-08-01] MEDS ORDERED: ONDANSETRON 4 MG TAB ODT SL SCH (14:00)
--- NOTE | 2023-08-01 14:28 | NUR ---
VISITED SUBSEQUENT TO HOSPICE ADMIT REQUEST. PT AND FAMILY AT [facility] WITH DECISION. LISTENED EMPATHETICALLY, PROVIDED SUPPORTIVE PRESENCE, ANTICIPATORY GUIDANCE, PRAYER.
--- NOTE | 2023-08-01 15:06 | NUR ---
PER PRIMARY RN, SHE WANTED TO VERIFY IF MD WOULD LIKE TO START BACK ON THE MS 15MG THAT PATIENT WAS TAKING AT HOME. WHEN MD ARRIVED TO FLOOR DISCUSSED PAIN MGMT AND OKAY TO START MS 15MG PO BID FOR COMFORT. ORDERS INPUT FOR START TIME OF 2100.
--- NOTE | 2023-08-01 15:30 | NUR ---
Met with pt and his . CM assessment completed. POLST form for DNR/DNI completed in ER with pt and Dr. Ragsdale. Pt has significant dementia. answers questions. Would like pt to admit to Hospice as soon as possible. They live in a 1 story home in [place]. Pt has one step into the home and does not have issues getting in or out of the home at this time. states they are not ready for a hospital bed at this time. Pt uses a cane, walker, toilet riser, and shower chair at this time. denies pt has any issue with incontinence. I spoke with Christy from [facility] and they will meet the pt at his home tomorrow at 10:[address] Ragsdale was in my office during my phone conversation. Hospice will bring a comfort kit, they do not have lactulose on their formilary. Dr. Ragsdale will order for to tack picker. Plan for dc to hospice tomorrow.
--- NOTE | 2023-08-01 15:54 | NUR ---
Patient visiting with family at this time, no distress. Patient's oxygeon 100% on 2L per nc, respirations non labored. Patient denies needs at this time, call light within reach.
--- NOTE | 2023-08-01 17:54 | NUR ---
PT WAS HAVING A VERY DIFFICULT FEEDING SELF, SAT WITH PATIENT AND ASSISTED WITH DINNER. INTAKE OF ABOUT 75% AND SHE TOLERATED VERY WELL. PT C/O PAIN TO BACK/BUTTOCKS BUT JUST RECEIVED PAIN MEDS. OFFERED PILLOW BEHIND HEAD BUT PT STATES IT MAKES PAIN WORSE. PRIMARY RN NOTIFIED AND PAIN MEDS JUST GIVEN AT 1700. ALL PT CARE NEEDS MET, CALL LIGHT WITHIN REACH.
--- NOTE | 2023-08-01 19:25 | NUR ---
BEDSIDE REPORT RECEIVED FROM GEOFF RN, PT AWAKE AND ALERT, VISITING WITH , DENIES PAIN AT THIS TIME, SIDE RAILS UP X 4, HOB ELEVATED APPROX 30 DEGREES, PT APPEARS TO NOT BE IN ANY DISTRESS.
[2023-08-01 20:07] VITALS: BP 119/76
--- NOTE | 2023-08-01 20:38 | NUR ---
PT AWAKE AND ALERT, PLEASANT AND ANSWERS QUESTIONS WELL, SPEECH CLEAR, PT REPEATS SELF FREQUENTLY, AT BEDSIDE AND SUPPORTIVE, VS STABLE, ASSESSMENT COMPLETED, RT MEDS GIVEN PER ORDER, PT STATES SOME DISCOMFORT IN RUQ OF ABDOMEN, RT PAIN MED GIVEN, SL IN RIGHT AC INTACT WITH GOOD BLOOD RETURN. PT GIVEN PUDDING WITH PAIN MEDICATION, ENCOURAGE AND ASSISTED TO TAKE DRINK OF WATER, WARM BLANKET GIVEN AND PT ATTEMPTING TO SLEEP.
[2023-08-01] MEDS ORDERED: MORPHINE SULFATE 15 MG TABCR PO SCH (21:00)
--- NOTE | 2023-08-01 22:22 | NUR ---
PT LAYING ON RIGHT SIDE, RESP EVEN AND REG, HOB REMAINS ELEVATED, REMAINS AT BEDSIDE IN RECLINER.
--- NOTE | 2023-08-01 23:00 | NUR ---
BED ALARM GOING OFF, PT SITTIN ON SIDE OF BED AND ASSISTING HIM WITH USING THE URINAL, DENIES ASSIST AT THIS TIME.
--- NOTE | 2023-08-01 23:10 | NUR ---
PT LAYING BACK IN BED, HOB ELEVATED APPROX 30 DEGREES, BED ALARM BACK ON, PT VOIDED 200ML STACIE URINE PER URINAL. PT WITHOUT COMPLAINTS, OXYGEN REMAINS IN PLACE AND CONTINUES AT 2L/NC.
[2023-08-01 23:17] VITALS: BP 119/76
--- NOTE | 2023-08-02 00:35 | NUR ---
PT APPEARS TO SLEEP, RESP EVEN AND REG, LAYING ON RIGHT SIDE.
--- NOTE | 2023-08-02 02:10 | NUR ---
PT AWAKE, DESIRES TO USE URINAL, ASSISTED TO SIDE OF BED WITH AND RN, VOIDED 150ML STACIE URINE, PT WITHOUT COMPLAINTS AT THIS TIME, RESTING QUIETLY, OXYGEN REPLACED AT 2L/NC.
--- NOTE | 2023-08-02 03:20 | NUR ---
PT ASLEEP, RESP EVEN AND REG, BED ALARM ON, REMAINS AT BEDSIDE.
[2023-08-02 04:34] VITALS: BP 147/88
--- NOTE | 2023-08-02 04:39 | NUR ---
CALL LIGHT ANSWERED. PT NEEEDED TO USE URINAL. PT ASSISTED TO EDGE OF BED AND WIDE ASSISTED PT USING URNIAL. SENIOR FRONT END WEB DEVELOPER OBTAINED VITALS AND I&O. PT STATES NO FURTHER NEEDS AT THIS TIME. CALL LIGHT PLACED WITHIN REACH. BED ALARM ON.
--- NOTE | 2023-08-02 05:45 | NUR ---
PT ASLEEP, RESP EVEN AND REG, LAYING ON SIDE, OXYGEN IN PLACE, PT WITHOUT SIGNS OF DISTRESS.
--- NOTE | 2023-08-02 06:20 | NUR ---
0434 VS REVIEWED AND STABLE FOR PT.
[2023-08-02] MEDS ORDERED: LACTULOSE10 GM/15 M PO (07:23)
--- NOTE | 2023-08-02 08:22 | NUR ---
MED REC COMPLETE
[2023-08-02 08:51] VITALS: BP 120/74
[2023-08-02] MEDS ORDERED: PANTOPRAZOLE SODIUM 40 MG TABEC PO SCH (09:00)
--- NOTE | 2023-08-02 22:13 | EKG ---
[facility] [address] [facility] [place] [address] Signed Normal sinus rhythm Septal infarct (cited on or before 18-JUL-2023) Abnormal ECG When compared with ECG of 19-JUL-2023 10:02, Questionable change in initial forces of Anterior leads T wave inversion no longer evident in Lateral leads QT has lengthened Confirmed by GAUDENCIO OLIVARES MD ([id number]) on 08/02/2023 10:13:09 PM Electronically Signed By: GAUDENCIO OLIVARES 08/02/23 2213 PATIENT NAME: JULIUS HARRIS [facility] Electrocardiogram DATE OF : 42 PHYSICIAN: GAUDENCIO OLIVARES REPORT #: [id number] REPORT IS CONFIDENTIAL AND NOT TO BE RELEASED WITHOUT AUTHORIZATION
== END 2023-08-02 09:15 | disposition home or self-care (01) ==
LOC: ED 07:43 → MS 07:45
PROVIDERS: Emergency Medicine; ADMIT Internal Medicine; ATTEND Internal Medicine
DX: I26.99 Other pulmonary embolism without acute cor pulmonale (principal); I10 Essential (primary) hypertension; E78.5 Hyperlipidemia, unspecified; E11.9 Type 2 diabetes mellitus without complications; G30.9 Alzheimer's disease, unspecified; F02.80 Dementia in other diseases classified elsewhere, unspecified severity, without behavioral disturbance, psychotic disturbance, mood disturbance, and anxiety; Z66 Do not resuscitate; Z95.5 Presence of coronary angioplasty implant and graft; Z88.8 Allergy status to other drugs, medicaments and biological substances; Z79.84 Long term (current) use of oral hypoglycemic drugs; Z79.899 Other long term (current) drug therapy
CPT/HCPCS: 36415; 71045; 71260; 80053; 83690; 84484; 85025; 93005; 93010; A9270; J1650; J2405; J7030; Q9967